=== PATIENT | male | born 1965 | race Caucasian/White ===

== ENCOUNTER → 2018-01-07 07:11 | Outpatient (CLI) | payer OTHER, SELFPAY ==
--- NOTE | 2018-01-07 13:43 | NEURO ---
NCS and/or EMG Patient Report Ordering Doctor: Sonali Lechuga DATE OF SERVICE: 01/07/18 This is a bilateral upper extremity nerve conduction study performed on this 52-year-old male with a history of initially burning sensation in his hands in all of his fingers, progressing to loss of sensation in the fingertips. He has previously been diagnosed with peripheral neuropathy in his feet at this point described as numbness at midcalf. He has seen a neurologist apparently at the [facility] in [place] and was diagnosed with an idiopathic neuropathy. He is healthy otherwise. Previous nerve conduction study performed 08/16/09 demonstrated similar findings as today's study. Today's study demonstrates mild prolongation of the median motor distal latencies with preservation of the median sensory distal latencies. On the left side amplitudes are reduced on the right side there preserved. Conduction velocities are intact. Ulnar motor and sensory and radial sensory responses are normal. These findings are consistent with nerve conduction study results from 08/16/2009. Impression: There is evidence of mild to moderate median neuropathy at the wrists bilaterally however this does not appear to explain his clinical symptoms which are more consistent with a small fiber neuropathy based on normal electrophysiologic studies otherwise. The patient reports a history of B12 replacement. Other investigations could include evaluation of serum protein electrophoresis, hepatic panel, heavy metal screen if there is a history of heavy metal exposure, and inflammatory markers.
--- NOTE | 2018-01-07 13:46 | NEURO_ITS ---
NCS and/or EMG Patient Report Ordering Doctor: Sonali Lechuga DATE OF SERVICE: 01/07/18 This is a bilateral upper extremity nerve conduction study performed on this 52- year-old male with a history of initially burning sensation in his hands in all of his fingers, progressing to loss of sensation in the fingertips. He has previously been diagnosed with peripheral neuropathy in his feet at this point described as numbness at midcalf. He has seen a neurologist apparently at the [facility] in [place] and was diagnosed with an idiopathic neuropathy. He is healthy otherwise. Previous nerve conduction study performed 08/16/09 demonstrated similar findings as today's study. Today's study demonstrates mild prolongation of the median motor distal latencies with preservation of the median sensory distal latencies. On the left side amplitudes are reduced on the right side there preserved. Conduction velocities are intact. Ulnar motor and sensory and radial sensory responses are normal. These findings are consistent with nerve conduction study results from 08/16/2009. Impression: There is evidence of mild to moderate median neuropathy at the wrists bilaterally however this does not appear to explain his clinical symptoms which are more consistent with a small fiber neuropathy based on normal electrophysiologic studies otherwise. The patient reports a history of B12 replacement. Other investigations could include evaluation of serum protein electrophoresis, hepatic panel, heavy metal screen if there is a history of heavy metal exposure, and inflammatory markers.
== END ==
PROVIDERS: Family Provider Internal Medicine; PCP Internal Medicine; Visit Provider Internal Medicine
DX: R20.2 Paresthesia of skin (principal)
CPT/HCPCS: 95913

== ENCOUNTER → 2018-11-06 13:14 | Outpatient (CLI) | payer OTHER, SELFPAY ==
--- NOTE | 2018-11-06 13:20 | RAD_ITS ---
STUDY: X-RAY CHEST REASON FOR EXAM: Male, 53 years old. Mid chest pain. TECHNIQUE: PA and lateral views of the chest. COMPARISON: Comparison is made with prior study dated April 21, 2015. FINDINGS: The lungs are clear and expanded. Scattered calcified granulomas. The lungs are clear. There is no demonstrated pleural abnormality. Normal size heart. Normal mediastinum and kaylee. Normal visualized pulmonary arteries. Normal visualized aortic arch and descending thoracic aorta. There are mild degenerative changes of the visualized thoracic spine. Normal visualized ribs, clavicles, and shoulders. There is no demonstrated abnormality of the visualized soft tissue structures of the upper abdomen. RAD/Chest PA and Lateral IMPRESSION: No acute abnormality is seen. Electronically Signed: Huan Arias, at 13:36 EDT , Service support ,
== END ==
PROVIDERS: Family Provider Internal Medicine; PCP Internal Medicine; Visit Provider Internal Medicine
DX: R07.9 Chest pain, unspecified (principal)
CPT/HCPCS: 71046

== ENCOUNTER → 2018-11-06 14:05 | Outpatient (CLI) | payer OTHER, SELFPAY ==
[2018-11-06 14:25] LABS: Hemoglobin 15.9 g/dl (13.0-16.5); Mean Corp Hgb Conc 33.8 g/gl (32-36); Mean Corpuscular Hgb 27.5 pg (27.0-32.0); Mean Corpuscular Volume 81.3 fL (80-94); Mean Platelet Vol. 10.4 fl (6.2-12.0); Platelet Count 335 K/mm3 (150-450); RBC Distribution Width SD 41.9 fl (35.1-43.9); Red Blood Count 5.78 M/mm3 (4.6-6.2); White Blood Count 9.4 K/mm3 (4.4-11.0)
[2018-11-06 14:27] LABS: Erythrocyte Sedimentation Rate 7 mm/hr (0-20)
[2018-11-06 14:28] LABS: Scan Indicated on CBC? Y/N NO
[2018-11-06 14:46] LABS: D-Dimer Quantitative (DVT/PE) < 0.27 FEU/ug/m (0.27-0.49)
[2018-11-06 14:58] LABS: ALB/GLOB Ratio 1.1 RATIO (0.9-2.4); AST(SGOT) 16 U/L (15-37); Alanine Aminotransfer ALT/SGPT 26 U/L (16-61); Albumin, Serum 3.9 g/dL (3.2-5.0); Alkaline Phosphatase 101 U/L (45-117); Anion Gap 4 (5-15); BUN 17 mg/dL (7-18); BUN/Creat Ratio 18.5 RATIO (10-20); Calcium,Total 8.9 mg/dL (8.5-10.1); Chloride 105 mmol/L (98-107); Creatinine, Serum 0.92 mg/dL (0.70-1.30); EST Glomerular Filtration Rate 91 mL/min (>60); Est Glom Filt Rate - Afr Amer 110 mL/min (>60); Globulin 3.5 g/dL (2.2-4.2); Glucose 82 mg/dL (74-106); Potassium 5.1 mmol/L (3.5-5.1); Protein, Total 7.4 g/dL (6.4-8.2); Sodium Level 139 mmol/L (136-145)
== END ==
PROVIDERS: Family Provider Internal Medicine; PCP Internal Medicine; Referring Provider Internal Medicine; Visit Provider Internal Medicine
DX: R07.9 Chest pain, unspecified (principal)
CPT/HCPCS: 80053; 84484; 85027; 85379; 85652

== ENCOUNTER → 2018-11-20 05:47 | Outpatient (CLI) | payer OTHER, SELFPAY ==
[2018-11-07 09:20] VITALS: BMI 34.8
--- NOTE | 2018-11-20 10:06 | STRESSREP ---
Stress Test Report Date: 11-20-18 Procedure: Exercise tolerance test/imaging study Indications: Chest pain Consent: Per the patient Procedure: The patient exercised on a Alexy protocol for 8 minutes and 30 seconds completing Stage II and 2 minutes and 30 seconds of Stage III achieving a peak heart rate of 164 bpm (99 % predicted maximal heart rate) with a peak blood pressure 150/84 mmHg and a peak MET capacity of 9 METs. The baseline ECG demonstrated normal sinus rhythm. The peak exercise ECG demonstrated somatic/motion artifact with no obvious ECG changes. There was a rare PVC during exercise and recovery. The functional capacity was considered good. There was no complaint of chest discomfort during exercise or recovery. The examination was discontinued secondary to dyspnea. Impression: 1. Technically adequate (percent predicted maximal heart rate greater than 85%) exercise tolerance test 2. Peak exercise ECG demonstrated somatic/motion artifact with no obvious ECG changes 3. There was a rare PVC during exercise and recovery 4. Nuclear images pending Myocardial perfusion imaging study: Technique: The patient was injected with 14.7 mCi of technetium 99m Cardiolite and subsequently rest SPECT Cardiolite nuclear imaging was obtained in the horizontal long, vertical long, and short axis views. The patient exercised on a Alexy protocol for 8 minutes and 30 seconds completing Stage II and 2 minutes and 30 seconds of Stage III achieving a peak heart rate of 164 bpm (99 % predicted maximal heart rate) with a peak blood pressure 150/84 mmHg and a peak MET capacity of 9 METs. The patient was injected with 44.6 mCi of technetium 99m Cardiolite and subsequently stress SPECT Cardiolite nuclear imaging was obtained in the horizontal long, vertical long, and short axis views. A gated Cardiolite study at peak stress was obtained. Interpretation: Rest and stress SPECT Cardiolite nuclear imaging status post realignment, normalization, and attenuation correction, demonstrates the raw images to suggest an element of body motion during image acquisition. At rest there appears to be relative uniform tracer uptake. Status post stress there is notation of an area of subtle diminished tracer uptake in the mid anterior segments. There is end systolic thickening and brightening. The gated Cardiolite study demonstrates myocardial thickening and inward wall motion. The reported LVEF is 65 %. Impression: 1. Rest and stress SPECT Cardiolite nuclear imaging demonstrate demonstrate, based upon raw image analysis, body motion during image acquisition. Otherwise there appears to be relative uniform tracer uptake at rest. Status post stress there is an area of subtle diminished tracer uptake in the mid anterior segments potentially compatible with body motion/artifact and shifting soft tissue attenuation, however, an element of myocardial ischemia cannot necessarily be excluded. 2. The gated Cardiolite study reports an LVEF of 65 %. This note was generated with [employer] software. It may contain incorrect words, spelling, and punctuation that were not noted in checking the note before signing.
== END ==
PROVIDERS: Family Provider Internal Medicine; PCP Internal Medicine; Referring Provider Internal Medicine; Visit Provider Internal Medicine
DX: R07.9 Chest pain, unspecified (principal)
CPT/HCPCS: 78452; 93017; A9500; A4216

== ENCOUNTER 2019-05-03 02:19 | Emergency (ER) | payer OTHER, SELFPAY ==
[2018-11-07 09:20] VITALS: BMI 34.8
[2019-05-03 02:20] VITALS: BP 136/93; PULSE 95; RESP 17; TEMP 36.8; O2SAT 94; BMI 35.2
--- NOTE | 2019-05-03 02:30 | RAD_ITS ---
STUDY: X-RAY CHEST REASON FOR EXAM: Male, 53 years old. Chest pain. TECHNIQUE: Single AP portable view of the chest. COMPARISON: 11/06/2018. FINDINGS: The lungs are clear and expanded. There is no demonstrated pleural abnormality. Normal size heart. Normal mediastinum and kaylee. Normal visualized pulmonary arteries. Normal visualized aortic arch and descending thoracic aorta. Normal visualized thoracic spine. Normal visualized ribs, clavicles, and shoulders. There is no demonstrated abnormality of the visualized soft tissue structures of the upper abdomen. RAD/Chest 1 View (Portable) IMPRESSION: Normal x-ray examination of the chest. Electronically Signed: Evelyn Mas MD at 3:27 EST , Service support ,
--- NOTE | 2019-05-03 02:30 | ED.DCSUM_ITS ---
- ER Visit Summary Date of Service: 05/03/19 Chief Complaint: Chest pain History of Present Illness: The patient is a 53 M with chest pain. It started in a bandlike pattern over his lower ribs at around 3 PM yesterday. The pain radiates up into his retrosternal area. It feels like a tightness and heavine ss, similar to prior bronchitis. He denies cough or other bronchitis symptoms. Denies recent illness. He was watching TV when it started. He does not notice an exertional component. Does not notice any other associated symptoms like nausea, shortness of breath, or diaphoresis. He did feel little lightheaded. Nothing seems to bring it on or make it worse. Nothing seems to make it better. He never had this in the past. He was evaluated in November of this year with a stress test. They could not completely rule out ischemia, but there was nothing obviously abnormal. He does not take aspirin or other blood thinners. Denies any history of coronary disease or other heart disease. Denies any history of venous thromboembolism or aortic disease. Physical Examination: Afebrile and vital signs unremarkable. Alert and oriented. No acute distress. Skin appears normal without diaphoresis or pallor. Heart regular rate and rhythm. Lungs clear. Extremities nontender. Pulses strong and equal. Test Results: EKG showed sinus rhythm at a rate of 89 with no signs of ischemia or infarction pattern. Laboratory studies and chest x-ray are pending. Emergency Department Course and Treatment: IV placed. Patient placed on a monitor. EKG unremarkable. Will check labs and chest x-ray. He received aspi rin while awaiting results. Patient's work-up was completely unremarkable. His symptoms had decreased a lot as he waited here. I have very low suspicion for ACS. His pain has been constant for almost 12 hours, and his troponin was normal. This does not sound like unstable angina. I was talking with the patient and noticed his pulse ox was 92% on room air. I continued to observe him and he does not appear to be short of breath or in any distress. However, his pulse ox remained 92 to 93%. I do not have an explanation for this. We will check a CTA. CTA showed no evidence of PE or dissection. Patient is low risk and will follow-up as an outpatient for further evaluation. Return for any new or worsening issues. Patient did report that his verapamil ER prescription has not shown up at his house yet and is requesting a refill. Will refill short supply. He should follow-up with his prescriber and mail order company. Treatment Plan: As above Disposition: Discharge Impression: 1. Atypical chest pain This note was generated with [employer] dictation software. It may contain incorrect words, spelling, and punctuation that were not noted in review of the chart prior to signing ED Disposition - Plan for ED Patient: Referrals: Sonali Lechuga MD [Primary Care Provider] -
--- NOTE | 2019-05-03 02:30 | EKG12_ITS ---
Test Reason : CP Blood Pressure : / mmHG Vent. Rate : 089 BPM Atrial Rate : 089 BPM P-R Int : 172 ms QRS Dur : 076 ms QT Int : 332 ms P-R-T Axes : 018 015 027 degrees QTc Int : 403 ms Normal sinus rhythm Normal ECG Confirmed by CATY RIVERA MD ([id number]), web editor MERLINE PACHECO ([id number]) on 05/05/2019 11:36:36 AM Referred By: DC Confirmed By:CATY RIVERA MD
[2019-05-03] MEDS: Aspirin 81 MG TAB.CHEW 324 MG PO (02:35)
[2019-05-03 02:40] LABS: Absolute Lymphocyte Count 2.65 X10^3/uL (0.83-4.51); Basophil# 0.06 X10^3/uL; Basophil% 0.6 % (0-1); Eosinophil# 0.19 X10^3/uL; Eosinophils% 1.9 % (0-5); Hematocrit 48.6 % (40-54); Hemoglobin 15.7 g/dL (13.0-16.5); Lymphocyte # 2.65 X10^3/ul (4.0); Mean Corp Hgb Conc 32.3 g/dL (32-36); Mean Corpuscular Hgb 27.3 pg (27.0-32.0); Mean Corpuscular Volume 84.5 fL (80-94); Monocyte# 1.31 X10^3/uL; Monocyte% 12.8 % (0-10); NRBC Flagged by Analyzer 0 % (0-5); Neutrophil # 5.95 X10^3/uL (2.7-7.7); Neutrophil % 58.2 % (47-70); Platelet Count 285 K/mm3 (150-450); RBC Distribution Width CV 13.4 % (11.6-14.6); RBC Distribution Width SD 41.2 fl (35.1-43.9); Red Blood Count 5.75 M/mm3 (4.6-6.2); White Blood Count 10.2 K/mm3 (4.4-11.0)
[2019-05-03 02:55] LABS: AST(SGOT) 14 U/L (15-37); Alanine Aminotransfer ALT/SGPT 30 U/L (16-61); Albumin, Serum 3.6 g/dL (3.2-5.0); Alkaline Phosphatase 106 U/L (45-117); Anion Gap 5 (5-15); BUN 18 mg/dL (7-18); BUN/Creat Ratio 18.1 RATIO (10-20); Bilirubin, Direct 0.12 mg/dL (0.00-0.30); Calcium,Total 8.8 mg/dL (8.5-10.1); Chloride 107 mmol/L (98-107); Creatinine, Serum 0.99 mg/dL (0.70-1.30); EST Glomerular Filtration Rate 83 mL/min (>60); Est Glom Filt Rate - Afr Amer 100 mL/min (>60); Estimated Creatinine Clearance 103.51 ml/min; Globulin 3.8 g/dL (2.2-4.2); Glucose 105 mg/dL (74-106); Lipase 264 U/L (73-393); Potassium 3.9 mmol/L (3.5-5.1); Protein, Total 7.4 g/dL (6.4-8.2); Sodium Level 140 mmol/L (136-145)
--- NOTE | 2019-05-03 03:43 | CT_ITS ---
STUDY: CTA CHEST REASON FOR EXAM: Male, 53 years old. Chest pain. History of hypertension. RADIATION DOSAGE (If Supplied By Facility): CTDIvol = ( 11.61 ) mGy, DLP = ( 550.14 ) mGycm TECHNIQUE: The examination was performed with the intravenous administration of IV 100mL Isovue-370 100ML. Post-processing of the angiographic images was performed, with multiplanar reformation and 3D reconstruction. Individualized dose optimization techniques were used for this CT. COMPARISON: None. FINDINGS: Normal enhancement of the main pulmonary artery and right and left pulmonary arteries. Normal enhancement of the bilateral peripheral pulmonary arteries. There is no demonstrated pulmonary embolism. Normal thoracic aorta and visualized great vessels. There is no demonstrated aortic dissection. Normal heart and pericardium. Normal mediastinum. Normal hilar regions. Normal visualized trachea and bronchi. The lungs are well expanded. There is mild bilateral posterior dependent atelectasis, otherwise normal lung parenchyma. Normal pleura. Normal chest wall structures. There are mild degenerative changes of thoracic spine. Normal visualized upper abdomen. CT/CTA Chest W/WO Contrast IMPRESSION: Negative CTA chest examination, without a demonstrated pulmonary embolism or arterial dissection. Mild posterior dependent atelectasis, otherwise normal chest CT examination. Electronically Signed: Evelyn Mas MD at 4:28 EST , Service support ,
[2019-05-03 03:48] VITALS: BP 121/87; PULSE 84; RESP 20; O2SAT 95
--- NOTE | 2019-05-03 04:39 | ED.DEP ---
ED Disposition - Plan for ED Patient: Instructions: CHEST PAIN, Uncertain Cause Prescriptions: Verapamil HCl [Verapamil ER] 480 mg PO QHS 30 Days #60 tablet.er Prescription Printed Referrals: Sonali Lechuga MD [Primary Care Provider] -
[2019-05-03 04:51] VITALS: BP 123/83; PULSE 82; RESP 18; O2SAT 93
== END 2019-05-03 05:00 | disposition home or self-care (01) ==
PROVIDERS: Emergency Provider Emergency Medicine; Family Provider Internal Medicine; PCP Internal Medicine
DX: R07.89 Other chest pain (principal); I10 Essential (primary) hypertension; R42 Dizziness and giddiness; G47.33 Obstructive sleep apnea (adult) (pediatric); Z79.899 Other long term (current) drug therapy
CPT/HCPCS: 71045; 71275; 80048; 80076; 83690; 84484; 85025; 93005; 99285; Q9967; A4216

== ENCOUNTER → 2019-05-12 08:34 | Outpatient (CLI) | payer OTHER, SELFPAY ==
[2019-05-03 02:20] VITALS: BMI 35.2
--- NOTE | 2019-05-12 08:37 | RAD_ITS ---
STUDY: X-RAY - UNILATERAL RIBS ( LEFT ) WITH CHEST REASON FOR EXAM: Male, 53 years old. TECHNIQUE - RIBS: 5 view(s) of the ribs. TECHNIQUE - CHEST: COMPARISON: None. FINDINGS - RIBS: Normal visualized ribs without a demonstrated fracture. FINDINGS - CHEST: The lungs are clear and expanded. There is no demonstrated pleural abnormality. Normal size heart. Normal mediastinum and kaylee. Normal visualized pulmonary arteries. Normal visualized aortic arch and descending thoracic aorta. Normal visualized thoracic spine. Normal visualized ribs, clavicles, and shoulders. There is no demonstrated abnormality of the visualized soft tissue structures of the upper abdomen. RAD/Ribs Uni Min 3V w/PA Chest IMPRESSION: RIBS: Normal x-ray examination of the ribs. CHEST: Normal x-ray examination of the chest. Electronically Signed: Lucas Giordano, at 16:16 EST Tel , Service support ,
== END ==
PROVIDERS: Family Provider Internal Medicine; PCP Internal Medicine; Referring Provider Internal Medicine; Visit Provider Internal Medicine
DX: R07.81 Pleurodynia (principal)
CPT/HCPCS: 71101

== ENCOUNTER 2020-11-11 01:46 | Emergency (ER) | payer OTHER, SELFPAY ==
[2020-11-11 01:49] VITALS: BP 134/89; PULSE 76; RESP 20; TEMP 36.6; O2SAT 98; BMI 35.9
--- NOTE | 2020-11-11 01:55 | CT_ITS ---
STUDY: CT ABDOMEN AND PELVIS WITHOUT CONTRAST REASON FOR EXAM: Male, 55 years old. Pain RADIATION DOSAGE (If Supplied By Facility): CTDIvol = ( 23.78 ) mGy, DLP = ( 1419.74 ) mGycm TECHNIQUE: Transaxial images were obtained from the dome of the diaphragm to the symphysis pubis without oral contrast, and without intravenous contrast. Sagittal and coronal images were reconstructed. Individualized dose optimization techniques were used for this CT. COMPARISON: None. FINDINGS: The visualized lung bases are unremarkable. The visualized portions of the heart are within normal limits. Normal liver. Normal gallbladder and extrahepatic biliary system. Normal spleen. Normal pancreas. Normal bilateral adrenal glands. There is a 2 mm calculus within the distal right ureter with mild upstream hydroureter.. Tiny 2 mm nonobstructive left renal calculus. Normal visualized stomach. Normal small intestine. There are multiple colonic diverticula consistent with diverticulosis. The appendix is visualized and appears normal. Normal abdominal aorta. Normal inferior vena cava. Normal retroperitoneum. Normal urinary bladder. Normal abdominal wall. Normal osseous structures. CT/Abdomen/Pelvis without Cont IMPRESSION: 2 mm calculus at the right ureterovesicular junction with mild upstream right hydroureter. Electronically Signed: Rene Frank MD at 2:59 EDT Tel , Service support ,
[2020-11-11] MEDS: 0.9% Normal Saline 1,000 ML 1000 ML IV (02:05)
[2020-11-11] MEDS: Ondansetron 4 MG/2 ML Vial IV (02:05)
[2020-11-11] MEDS: Ketorolac 15 MG/ML Vial IV (02:06)
[2020-11-11] MEDS: morphine 8 MG/ML Syringe IV (02:08)
[2020-11-11 02:12] LABS: Absolute Lymphocyte Count 2.61 X10^3/uL (0.83-4.51); Absolute Neutrophil Count 7.1 X10^3/uL (2.0-7.7); Basophil# 0.06 X10^3/uL; Basophil% 0.6 % (0-1); Eosinophil# 0.14 X10^3/uL; Eosinophils% 1.3 % (0-5); Hematocrit 47.2 % (40-54); Hemoglobin 15.2 g/dL (13.0-16.5); Lymphocyte # 2.61 X10^3/ul (0.83-4.51); Lymphocyte % 23.9 % (19-41); Mean Corp Hgb Conc 32.2 g/dL (32-36); Mean Corpuscular Hgb 27.4 pg (27.0-32.0); Mean Corpuscular Volume 85.2 fL (80-94); Mean Platelet Vol. 9.6 fl (6.2-12.0); Monocyte# 0.89 X10^3/uL; Monocyte% 8.2 % (0-10); NRBC Flagged by Analyzer 0 % (0-5); Neutrophil # 7.14 X10^3/uL (2.7-7.7); Neutrophil % 65.4 % (47-70); Platelet Count 311 K/mm3 (150-450); RBC Distribution Width CV 14.4 % (11.6-14.6); RBC Distribution Width SD 44.7 fl (35.1-43.9); Red Blood Count 5.54 M/mm3 (4.6-6.2); White Blood Count 10.9 K/mm3 (4.4-11.0)
[2020-11-11 02:29] LABS: ALB/GLOB Ratio 0.9 RATIO (0.9-2.4); AST(SGOT) 16 U/L (15-37); Alanine Aminotransfer ALT/SGPT 31 U/L (16-61); Albumin, Serum 3.6 g/dL (3.2-5.0); Alkaline Phosphatase 94 U/L (45-117); Anion Gap 5 (5-15); BUN 18 mg/dL (7-18); BUN/Creat Ratio 13.4 RATIO (10-20); Calcium,Total 8.9 mg/dL (8.5-10.1); Chloride 104 mmol/L (98-107); Creatinine, Serum 1.34 mg/dL (0.70-1.30); EST Glomerular Filtration Rate 58 mL/min (>60); Est Glom Filt Rate - Afr Amer 71 mL/min (>60); Estimated Creatinine Clearance 74.67 ml/min; Globulin 4.1 g/dL (2.2-4.2); Glucose 154 mg/dL (74-106); Lipase 178 U/L (73-393); Potassium 3.9 mmol/L (3.5-5.1); Protein, Total 7.7 g/dL (6.4-8.2); Sodium Level 138 mmol/L (136-145)
[2020-11-11 02:32] LABS: Mucous, Urine 0 SEEN /hpf (<or=2+); White Blood Cells 0 SEEN /hpf (0-5)
[2020-11-11 02:33] LABS: Color, Urine Yellow (Yellow); Glucose, Dipstick Normal (Normal); Ketone-Dipstick Negative (Negative); Leukocyte Esterase-Dipstick Negative /ul (Negative); Nitrite-Dipstick Negative (Negative); Occult Blood-Urine 250 /ul (Negative); Protein-Dipstick 15 mg/dl (Negative); Urine Bilirubin Dipstick Negative (Negative); Urine Clarity Clear (Clear); Urine Urobilinogen Normal (Normal)
[2020-11-11 02:40] LABS: Bacteria RARE /hpf (None Seen); Calcium Oxalate Crystals Ur 1+ /hpf (<or=2+); Hyaline Cast 0-5 SEEN /lpf (0-5); Red Blood Cells-Urine 25-50 SEEN /hpf (0-5); Squamous Epithelial Cells - UA 0-5 SEEN /hpf (0-5)
--- NOTE | 2020-11-11 03:27 | EDS_ITS ---
HPI History of Present Illness Chief Complaint: Flank Pain Informant: patient Narrative Narrative: Patient is a 55-year-old male presenting with back and abdominal pain. Patient states he woke up with pain in his right lower back rating around to his stomach. States it is constant and sharp. He states he feels the need to urinate but has not. Patient states he has some pain rating to his right testicle as well. He has some associated nausea denies any vomiting. No change in his bowel habits. No associated chest pain or shortness of breath. States he felt fine when he went to bed last night. Has never had any like this before. Denies any history of kidney stones. [facility] Medical History (Updated 11/11/20 @ 03:[address] Jessica Stone DO) Cluster headaches Degeneration of intervertebral disc of lumbosacral region First degree AV block Hemorrhoids Hypercholesterolemia Hypertension Male erectile dysfunction Obesity Onychomycosis Peripheral neuropathy Sleep apnea Spasm of back muscles Vitamin D deficiency Home Medications gabapentin 600 mg tablet 600 mg PO TID 11/07/18 [History Last Taken Unknown] pravastatin 80 mg tablet 80 mg PO DAILY 11/07/18 [History Last Taken Unknown] verapamil 240 mg 24 hr capsule,extended release 240 mg PO DAILY 11/07/18 [History Last Taken Unknown] Cialis PRN PRN 05/03/19 [History Last Taken Unknown] Imitrex PRN PRN 05/03/19 [History Last Taken Unknown] Terbinafine PRN PRN 05/03/19 [History Last Taken Unknown] liraglutide 0.6 mg SQ DAILY 05/03/19 [History Last Taken Unknown] hydrocodone-acetaminophen 1 tab PO Q6H PRN 3 Days #12 tab 11/11/20 [Rx Last Taken Unknown] ondansetron HCl [Zofran] 4 mg PO Q8H PRN #14 tab 11/11/20 [Rx Last Taken Unknown] tamsulosin [Flomax] 0.4 mg PO DAILY #7 cap 11/11/20 [Rx Last Taken Unknown] Allergy/AdvReac Type Severity Reaction Status Date / Time divalproex sodium Allergy Intermediate leg Verified 11/11/20 01:47 [From Depakote] swelling/fatique Family History Grandmother Cancer uterine/ovarian Mother Diabetes Hypercholesterolemia Grandfather Heart disease Father Cancer multiple myeloma Surgical History excision fatty cysts on back and arms H/O basal cell carcinoma excision History of arthroscopy of shoulder History of back surgery History of bilateral inguinal hernia repair History of vasectomy history repair left index finger Social History Smoking Status: Never smoker alcohol intake: current alcohol intake frequency: a few times a month substance use type: does not use ROS ROS ED Constitutional Constitutional ED: Denies chills, fever(s) or malaise Eyes Eyes: Denies blurry vision or loss of vision ENT ENT ED: Denies rhinorrhea or sore throat Cardiovascular Cardiovascular: Denies chest pain or dizziness Respiratory/Chest Respiratory/Chest: Denies cough or dyspnea Gastrointestinal Gastrointestinal: Reports abdominal pain and nausea; Denies vomiting Genitourinary Genitourinary ED: Reports other Details: urgency ; Denies dysuria or hematuria Musculoskeletal Musculoskeletal: Reports back pain; Denies arthralgias or myalgias Integumentary Denies rash or wounds Neurologic Neurologic: Denies focal weakness or headache(s) Psychiatric Psychiatric: Denies anxiety or behavioral changes EXAM Physical Exam Const Vital Signs: 11/11/20 01:49 Temperature 97.9 F Temperature Source Oral Pulse Rate 76 Respiratory Rate 20 H Blood Pressure 134/89 H Blood Pressure Mean 104 Pulse Ox 98 Oxygen Delivery Method Room Air Positive well nourished and well developed Constitutional Narrative: distress secondary to pain General Appearance ED: well developed HEENT Reports normocephalic atraumatic Nose: no nasal discharge General Ear: hearing grossly impaired External Ear: external ears normal Eyes PERRL and EOMs intact bilaterally Neck full ROM and no meningeal signs Chest Wall inspection of chest normal Resp normal respiratory effort and normal air movement Cardio regular rate and regular rhythm GI normal to inspection, nondistended, normoactive bowel sounds and no masses Back/Spine General Back: CVA tenderness right Extremity normal to inspection and full ROM Neuro oriented x3 and no focal motor deficits Psych mental status grossly normal and thought process normal Skin no rashes or lesions noted and no wounds MDM MDM MDM Narrative Medical decision making narrative: Patient evaluated sudden onset of flank pain rating to his abdomen. He has associated nausea. He appears significantly uncomfortable upon arrival. History and presentation is consistent with a kidney stone. Urinalysis shows hematuria with a calcium oxalate crystal but no signs of infection. His kidney function is at his baseline with his creatinine of 1.34. Patient does not have a leukocytosis. He is given IV fluids, Toradol, morphine and Zofran with improvement of his symptoms. CT of the abdomen pelvis shows a 2 cm right stone at the UVJ. This is likely the cause of his symptoms. Patient be discharged home with referral to urology as well as symptomatic treatment including Garrison, Zofran and Flomax. He is given a urine strainer. He is counseled on return precautions. He verbalized agreement understand with his plan. Patient is given a dose of Garrison prior to discharge. Lab Data Attestation: I reviewed the patient's lab results. Labs: Laboratory Results - last 24 hr 11/11/20 11/11/20 11/11/20 02:03 02:03 02:27 WBC 10.9 RBC 5.54 Hgb 15.2 Hct 47.2 MCV 85.2 MCH 27.4 MCHC 32.2 RDW Std Deviation 44.7 H RDW Coeff of Lisa 14.4 Plt Count 311 MPV 9.6 Immature Gran % (Auto) 0.600 Neut % (Auto) 65.4 Lymph % (Auto) 23.9 [place] % (Auto) 8.2 Eos % (Auto) 1.3 Baso % (Auto) 0.6 Absolute Neuts (auto) 7.1 Absolute Lymphs (auto) 2.61 Nucleated RBC % 0 Sodium 138 Potassium 3.9 Chloride 104 Carbon Dioxide 29.0 Anion Gap 5 BUN 18 Creatinine 1.34 H Estim Creat Clear Calc 74.67 Est GFR (MDRD) Af Amer 71 Est GFR (MDRD) Non-Af 58 L BUN/Creatinine Ratio 13.4 Glucose 154 H Calcium 8.9 Total Bilirubin 0.30 AST 16 ALT 31 Alkaline Phosphatase 94 Total Protein 7.7 Albumin 3.6 Globulin 4.1 Albumin/Globulin Ratio 0.9 Lipase 178 Urine Color Yellow Urine Clarity Clear Urine pH 5.0 Ur Specific [place] 1.030 Urine Protein 15 H Urine Glucose (UA) Normal Urine Ketones Negative Urine Occult Blood 250 H Urine Nitrite Negative Urine Bilirubin Negative Urine Urobilinogen Normal Ur Leukocyte Esterase Negative Urine RBC 25-50 SEEN Urine WBC 0 SEEN Ur Squamous Epith Cells 0-5 SEEN Calcium Oxalate Crystal 1+ Urine Bacteria RARE Hyaline Casts 0-5 SEEN Urine Mucus 0 SEEN Radiography Diagnostic Testing: Radiology Impression Abdomen/Pelvis CT 11/11/20 01:55 IMPRESSION: 2 mm calculus at the right ureterovesicular junction with mild upstream right hydroureter. Electronically Signed: Rene Frank MD at 2:59 EDT Tel , Service support , Treatment and Re-Evaluation Comments:: Morphine, IV fluids, Toradol and Zofran, significant improvement of pain. Discharge Plan Triage Chief Complaint: Flank Pain ED Provider: Jessica Stone Dx/Rx/DC Orders Instructions: ED Kidney Stone w/ Colic Prescriptions: New tamsulosin [Flomax] 0.4 mg capsule 0.4 mg PO DAILY Qty: 7 RF: 0 ondansetron HCl [Zofran] 4 mg tablet 4 mg PO Q8H PRN (Reason: nausea and vomiting) Qty: 14 RF: 0 hydrocodone-acetaminophen 5-325 mg tablet 1 tab PO Q6H PRN (Reason: pain) 3 Days Qty: 12 RF: 0 No Action verapamil 240 mg capsule,ext rel. pellets 24 hr 240 mg PO DAILY RF: 0 pravastatin 80 mg tablet 80 mg PO DAILY RF: 0 gabapentin 600 mg tablet 600 mg PO TID RF: 0 liraglutide 0.6 MG/0.1 ML pen injector 0.6 mg SQ DAILY RF: 0 Cialis PRN PRN (Reason: ed) RF: 0 Imitrex PRN PRN (Reason: Headache) RF: 0 Terbinafine PRN PRN (Reason: SKIN) RF: 0 Primary Care Provider: Sonali Lechuga Referrals: Sonali Lechuga MD [Primary Care Provider] - Delmar Galindo MD [STAFF PHYSICIAN] - Activity Restrictions/Additional Instructions: You may also take ibuprofen over the counter for pain as needed. Disposition Disposition: Home, self care
[2020-11-11] MEDS: HYDROcodone Bitartrate/Apap 5/325 Tablet PO (03:44)
[2020-11-11 03:58] VITALS: BP 124/75; PULSE 90; RESP 18; O2SAT 96
== END 2020-11-11 03:59 | disposition home or self-care (01) ==
PROVIDERS: Emergency Provider Emergency Medicine; PCP Internal Medicine
DX: N20.0 Calculus of kidney (principal); E66.9 Obesity, unspecified; E78.00 Pure hypercholesterolemia, unspecified; Z79.899 Other long term (current) drug therapy
CPT/HCPCS: 74176; 80053; 81001; 83690; 85025; 96361; 96374; 96375; 99284; J7030; A4216; J2405

== ENCOUNTER 2021-01-13 14:30 | Outpatient (RCR) | payer OTHER, SELFPAY ==
[2020-12-02 11:38] VITALS: BMI 35.9
--- NOTE | 2020-12-16 10:06 | HP.PTEVAL_ITS ---
Patient's Visit Information NATALIA MARTINEZ is a 55 year old M referred to Physical Therapy by Dr. Dimitry Aceves DO with a diagnosis of R distal fibular avulsion fracture, ankle laxity. Date of Evaluation: 12/16/20 Physical Therapist: Aniceto Alvarado DPT - Visit Plan Frequency: 1x/Week Duration: 4-6 Weeks Plan: Start with ankle strengthening and ROM in non painful ranges. Be careful due to lack of sensation in B feet. Add in hip strengthening progressing to balance activities to increase proprioception of his B ankles. - Subjective Pt. is here today for his initial evaluation with diagnosis of distal fibular avulsion fracture. Pt. reports having a long history of ankle injuries since being in the service. He was walking and twisted his ankle resulting in inv ankle sprain and resulting fibular avulsion fracture. DOI: ~ 3 weeks ago, but then hurt it again a few days ago when he was getting off the ground. Pt. arrives wearing his air cast without much issue. He is having some burning at the anterio/lateral aspect of his R ankle. He reports spraining his ankle frequently, both ankles (reports 2-3 times per month). Pt. did report that he is chronic numbness from mid calf down throughout his fee bilaterally from a back injury in the early . No surgical intervention, but has very minimal feeling in B distal LEs. He reports some pain with walking, but has had increased pain since his mild injury a few days ago. He reports no bruising, but has had some edema (minimal). Pt. does work at [employer]. He is hopeful get back to all recreational activities without limitations or increase in pain. - Pain R ankle Pain Intensity (Out of 10): 1 Pain Intensity Range: 0, 3 Comment: burning feeling with walking. - Objective POSTURE: Pt. has normal posture, slight lateral wt. shift to L side in stance. Pt. has slight B hip ER positioning in stance. PALPATION: pt. has some mild edema at R lateral ankle, bruising noted. Pt. has limited sensation at lateral ankle, actually both distal LEs. NEURO: Pt. has marked limited sensation of BLEs. He was not able to feel the strongest mono filament from mid weber an down of BLEs. Pt. has 2+ patellar DTR bilaterally, unable to elicit Achilles DTR bilaterally. ROM: R ankle: AROM: PF 8deg, PF 36deg, INV 10deg (mild increase NW), EVR 12deg NE. PROM: DF 13deg (mild increase NW), PF 44deg (NE), INV 16deg (increase NW), EVR 18deg NE. Pt. has normal knee ROM bilaterally, tightness in B HS. MMT: RLE: ankle 4/5 throughout, with mild increase in symptoms with ankle EVR. Knee 5/5 throughout; hip- flexion 4+/5,abd 4/5, ext 4/5. LLE: ankle 5/5 throughout; knee- ext 5/5, flexion 5/5; hip- flexion 4+/5, abd 4/5, ext 4/5. GAIT: Pt. has a rigid gait pattern, he has early heel off on R side during preswing. He has normal hip positioning throughout. Decreased tempo and step length bilaterally. STAIRS: Step to pattern with ascending/descending secondary to mild increase in anterolateral ankle pain on R side. - Goals Goal 1:: LTG: Pt. to be I with [facility] for ankle and hip strengthening. Goal Time Frame: 4-6 Weeks Goal 2:: STG: Pt. to have normal gait pattern without increase in symptoms. Goal Time Frame: 2-4 Weeks Goal 3:: STG: Pt. to have increased active DF to 15deg allowing for non painful gait cycle. 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 Goal Time Frame: 4-6 Weeks Goal 5:: LTG: Pt. to negotiate steps with reciprocal pattern with 1 HR without increase in symptoms. Goal Time Frame: 4-6 Weeks - Rehabilitation Potential Physical Therapy Diagnosis: Pt. has signs and symptoms consistent with R distal fibular avulsion fracture. Pt. has a chronic history of ankle inversion sprains bilaterally. He also has marked sensation loss in BLEs from mid calf down and does not feel the ground well with walking. This lack of sensation and subsequent proprioception makes him at increased risk for ankle sprains. The patient would benefit from PT to increase ankle strength and hip strength initially to increase stability with gait and dynamic movements. He would then benefit from PT to work on stability exercises and proprioception exercises to reduce risk for future ankle sprains. Rehabilitation Potential: Good - Anticipated Interventions Patient/Client Instruction: Educate patient on: Condition, Plan of Care, Risk Factors, Benefits of Fitness Program For the Purpose of:: To facilitate caregiver knowledge, To improve self management, To prevent re-injury, To improve ability to perform tasks related to life management, To improve tolerance to ADL's Therapeutic Exercise to Include: Strength training, Power training, Balance training, Coordination, Body mechanics, Postural training, Gait and locomotor training, Passive ROM, Active ROM For the Purpose of:: To decrease pain, To increase ROM, To improve nutrient delivery to tissue, To improve performance and independence with ADL's, To decrease level of supervision to perform tasks, To improve ability of physical actions for home/community/work/leisure, To improve gait and locomotor functions, To improve health of tissue, To decrease soft tissue restriction Thank you for the opportunity to evaluate your patient. For Medicare and Medicare HMO plans, please review the plan of care and approve it. It will need to be FAXED BACK to us at [phone] for Medicare purposes. For Medicare only, by signing this I certify the plan of care. Please let me know if there are questions or concerns regarding this plan of care. Physician Signature: Date:
--- NOTE | 2021-05-22 12:16 | HP.PT.NRP ---
NATALIA MARTINEZ was seen in my office for initial evaluation on 12/16/20. The following Plan of Care was established for this patient: Initial Frequency: 1x/Week Initial Duration: 4-6 Weeks Patient/Client Instruction: Educate patient on: Condition, Plan of Care, Risk Factors, Benefits of Fitness Program For the Purpose of:: To facilitate caregiver knowledge, To improve self management, To prevent re-injury, To improve ability to perform tasks related to life management, To improve tolerance to ADL's Therapeutic Exercise to Include: Strength training, Power training, Balance training, Coordination, Body mechanics, Postural training, Gait and locomotor training, Passive ROM, Active ROM For the Purpose of:: To decrease pain, To increase ROM, To improve nutrient delivery to tissue, To improve performance and independence with ADL's, To decrease level of supervision to perform tasks, To improve ability of physical actions for home/community/work/leisure, To improve gait and locomotor functions, To improve health of tissue, To decrease soft tissue restriction This patient was last seen in our office 01/13/21. Pertinent comments regarding their Physical therapy will appear below: Pt. was seen in PT for his distal fibular fx. Pt. was doing very well at his last visit. He has not ankita seen in several months and will be DC from PT at this point in time. At this point I will be discontinuing this patient from physical therapy. I would be happy to see this patient again in the future if found appropriate by the physician. Thank you! Aniceto Alvarado, DPT Balance/Gait/Functional tests - Balance/Special Test Scores Lower Extremity Functional Score: 55
== END 2021-01-13 19:00 | disposition home or self-care (01) ==
LOC: PT 14:30
PROVIDERS: PCP Internal Medicine; Referring Provider Orthopaedic Surgery; Visit Provider Orthopaedic Surgery
DX: S82.831D Other fracture of upper and lower end of right fibula, subsequent encounter for closed fracture with routine healing (principal); X58.XXXD Exposure to other specified factors, subsequent encounter
CPT/HCPCS: 97110; 97161

== ENCOUNTER → 2021-05-22 | Outpatient (CLI) | payer OTHER, SELFPAY | END | disposition home or self-care (01) | LOC: LABSPEC 10:05 | PROVIDERS: PCP Internal Medicine; Visit Provider Internal Medicine | DX: Z20.822 Contact with and (suspected) exposure to COVID-19 (principal) | CPT/HCPCS: 87635; U0005; U0003 ==

== ENCOUNTER 2021-10-25 08:00 | Outpatient (RCR) | payer OTHER, SELFPAY ==
--- NOTE | 2021-09-22 09:02 | HP.PTEVAL_ITS ---
Patient's Visit Information NATALIA MARTINEZ is a 56 year old M referred to Physical Therapy by Dr. Sonali Lechuga MD with a diagnosis of B shoulder pain. Date of Evaluation: 09/22/21 Physical Therapist: Robert Rucker, PT, ATC - Visit Plan Frequency: 1x/Week Duration: 2 Weeks Plan: Issue and instruct pt on HEP of rotator cuff strengthening and scap stab ex's over next 2 visits - Subjective Pt reports He has had B shoulder pain for a chronic period of time. Pt reports he had surgery on his L shoulder many years ago and never had rehab for it afterwards. Pt notes his R shoulder has been sore for the past 12 months. 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 Pt reports he is L hand dominant. Pt reports he received a cortisone injection in his R shoulder on his last Dr. visit and notes most of the pain is gone now. Pt reports he is mostly here now because he wants to make sure the pain doesnt return. No tingling or numbness in UE's. Pt reports he is still having sleep difficulty secondary to pain. Pt has had recent xrays which reveal no significant findings with the R shoulder. Pt currently works in a desk setting type of role. 1/10 pain at rest, 6/10 pain at worst. Pt reports anything that requires reaching overhead causes pain. - Pain B shoulders Pain Intensity (Out of 10): 1 Pain Intensity Range: 6 - Objective Neuro: B UE sensation is WNL to light touch. B bicipital reflex= 2/3. Palpation: No pain on L shoulder. Pt has pain on the lateral aspect of R shoulder. No obvious deformities at this time. ROM: L shoulder flex= 155, abd= 160, ER= 30, IR WNL; R shoulder flex= 155, abd= 140, ER= 40, IR WNL. MMT: B shoulders are 5/5 with he exception of ER= 4-/5 and painful - Balance/Special Test Scores Quick DASH Score: 29.5450 - Goals Goal 1:: I with HEP in 2-3 visits Goal Time Frame: 2 Weeks - Rehabilitation Potential Physical Therapy Diagnosis: Pt has B shoulder pain and weakness secondary to Impingement syndrome of B shoulders Rehabilitation Potential: Good - Anticipated Interventions Patient/Client Instruction: Educate patient on: Condition, Plan of Care For the Purpose of:: To improve self management Therapeutic Exercise to Include: Strength training, Endurance training, Scapular Strength/Stabilization For the Purpose of:: To decrease pain, To improve muscle performance and motor function Cryotherapy (ice pack, ice massage): Yes For the Purpose of:: To decrease pain Thank you for the opportunity to evaluate your patient. For Medicare and Medicare HMO plans, please review the plan of care and approve it. It will need to be FAXED BACK to us at [phone] for Medicare purposes. For Medicare only, by signing this I certify the plan of care. Please let me know if there are questions or concerns regarding this plan of care. Physician Signature: Date:
--- NOTE | 2021-10-25 08:50 | HP.PTDCSUM ---
It has been my pleasure to treat NATALIA MARTINEZ referred by Dr. Sonali Lechuga MD, with the diagnosis of B shoulder pain for a total of 3 visit(s). Discharge Date: Please see the following information for a summary of their discharge status. Subjective: Pt reports no pain at this time. B shoulders Pain Intensity (Out of 10): 0 % Improvement: 85 Objective/Function: B shoulder pain 0/10. ROM: R shoulder flex= 180, abd= 180, ER= 40, IR WNL; L shoulder flex= 180, abd= 180, ER= 40, IR WNL. MMT: B shoulders 5/5 throughout. Pt is now I with HEP Goal 1:: I with HEP in 2-3 visits Goal Progress: Goal Met Plan: Discharge If there are questions or concerns regarding this patient's physical therapy, please feel free to call me at [phone]. Thank you for the referral of this patient. Sincerely, Robert Rucker, PT, ATC Balance/Gait/Functional tests - Balance/Special Test Scores Quick DASH Score: 0
== END 2021-10-25 19:00 | disposition home or self-care (01) ==
LOC: PT 08:00
PROVIDERS: PCP Internal Medicine; Referring Provider Internal Medicine; Visit Provider Internal Medicine
DX: M25.511 Pain in right shoulder (principal); M25.512 Pain in left shoulder
CPT/HCPCS: 97110; 97161; 97164

== ENCOUNTER 2023-01-05 23:27 | Inpatient (IN) | payer OTHER, SELFPAY ==
[2023-01-05 23:31] VITALS: BP 163/129; PULSE 88; RESP 18; TEMP 37.1; O2SAT 94; BMI 36.3
--- NOTE | 2023-01-05 23:43 | CT_ITS ---
STUDY: CT ABDOMEN AND PELVIS WITH CONTRAST - URINARY TRACT REASON FOR EXAM: Male, 57 years old. abd pain RADIATION DOSAGE (If Supplied By Facility): CTDIvol = ( 31.18 ) mGy, DLP = ( 2019.19 ) mGycm TECHNIQUE: IV 100mL Isovue-300 was administered. Transaxial images were obtained from the dome of the diaphragm to the symphysis pubis in the arterial, nephrographic and excretory phases. Multiplanar coronal and sagittal images were reformatted. Individualized Dose Optimization Techniques Were Used For This CT. COMPARISON: FINDINGS: The visualized lung bases are unremarkable. The visualized portions of the heart are within normal limits. Normal liver. Normal gallbladder and extrahepatic biliary system. Normal spleen. Normal pancreas. Normal bilateral adrenal glands. Normal visualized stomach. There is dilatation of small bowel loops in the left upper quadrant with transition in the distal jejunum suggesting small bowel obstruction most likely due to internal hernia. Normal colon. The appendix is visualized and appears normal. Normal abdominal aorta. No retroperitoneal adenopathy. Normal right kidney. Normal left kidney. Normal urinary bladder. Normal abdominal wall. Normal osseous structures. CT/Abdomen/Pelvis W IV Cont ONLY IMPRESSION: There is dilatation of small bowel loops in the left upper quadrant with transition in the distal jejunum suggesting small bowel obstruction most likely due to internal hernia. Electronically Signed: Sherry Paul MD at 1:29 EDT ,
[2023-01-05] MEDS: Morphine 4 MG/ML Syringe IV (23:59)
[2023-01-05] MEDS: 0.9% Normal Saline 1,000 ML 150 ML IV (23:59)
[2023-01-06] VITALS (15 sets, daily range): BP systolic 112–149; BP diastolic 70–99; PULSE 70–103; RESP 16–18; TEMP 36.3–37.2; O2SAT 90–97; BMI 36.3; BMI 36.6
[2023-01-06] MEDS: Ondansetron 4 MG/2 ML Vial IV
[2023-01-06 00:23] LABS: AST(SGOT) 12 U/L (15-37); Alanine Aminotransfer ALT/SGPT 18 U/L (16-61); Albumin, Serum 3.2 g/dL (3.2-5.0); Alkaline Phosphatase 83 U/L (45-117); Anion Gap 5 (5-15); BUN 12 mg/dL (7-18); BUN/Creat Ratio 9.4 RATIO (10-20); Bilirubin, Direct 0.24 mg/dL (0.00-0.30); Chloride 106 mmol/L (98-107); Creatinine, Serum 1.27 mg/dL (0.70-1.30); EST Glomerular Filtration Rate 62 mL/min (>60); Est Glom Filt Rate - Afr Amer 75 mL/min (>60); Estimated Creatinine Clearance 76.89 ml/min; Globulin 3.6 g/dL (2.2-4.2); Glucose 138 mg/dL (74-106); Lipase 42 U/L (13-75); Potassium 3.8 mmol/L (3.5-5.1); Protein, Total 6.8 g/dL (6.4-8.2); Sodium Level 137 mmol/L (136-145)
[2023-01-06 00:30] LABS: Absolute Lymphocyte Count 0.99 X10^3/uL (0.83-4.51); Absolute Neutrophil Count 11.8 X10^3/uL (2.0-7.7); Basophil# 0.04 X10^3/uL; Basophil% 0.3 % (0-1); Eosinophil# 0.18 X10^3/uL; Eosinophils% 1.3 % (0-5); Hematocrit 55.5 % (40-54); Hemoglobin 18.2 g/dL (13.0-16.5); Lymphocyte # 0.99 X10^3/ul (0.83-4.51); Lymphocyte % 6.9 % (19-41); Mean Corp Hgb Conc 32.8 g/dL (32-36); Mean Corpuscular Hgb 27.6 pg (27.0-32.0); Mean Corpuscular Volume 84.1 fL (80-94); Mean Platelet Vol. 10.4 fl (6.2-12.0); Monocyte# 1.09 X10^3/uL; Monocyte% 7.6 % (0-10); NRBC Flagged by Analyzer 0 % (0-5); Neutrophil # 11.77 X10^3/uL (2.7-7.7); Neutrophil % 82.6 % (47-70); Platelet Count 257 K/mm3 (150-450); RBC Distribution Width CV 15.8 % (11.6-14.6); RBC Distribution Width SD 45.7 fl (35.1-43.9); White Blood Count 14.3 K/mm3 (4.4-11.0)
[2023-01-06 00:31] LABS: Differential Indicated SCAN CRITERIA MET
[2023-01-06 01:03] LABS: Anisocytosis 1+
--- NOTE | 2023-01-06 01:37 | EDS_ITS ---
HPI History of Present Illness Chief Complaint: Abd Pain Informant: patient Onset/Context/Timing Onset: Yesterday Context: Gradual Onset Current Severity: Moderate Maximum Severity: Moderate Narrative Narrative: Patient present secondary to upper abdominal pain and bloating. He and his ate at a [place] restaurant in [place] last evening. After this patient states he just felt very bloated and full. Symptoms persisted throughout the day on Saturday and he presents here late Saturday evening for evaluation. He has had nausea but no vomiting. His last bowel movement was around 2:30 AM on Saturday. He has been passing some gas throughout the remainder of Saturday. He denies abdominal surgery in the past. He has had colonoscopies regularly without any abnormalities. [facility] Medical History Cluster headaches Degeneration of intervertebral disc of lumbosacral region First degree AV block Hemorrhoids Hypercholesterolemia Hypertension Male erectile dysfunction Obesity Onychomycosis Peripheral neuropathy Sleep apnea Spasm of back muscles Vitamin D deficiency Home Medications gabapentin 600 mg tablet 600 mg PO TID 11/07/18 [History Last Taken Unknown] pravastatin 80 mg tablet 80 mg PO DAILY 11/07/18 [History Last Taken Unknown] verapamil 240 mg 24 hr capsule,extended release 240 mg PO DAILY 11/07/18 [History Last Taken Unknown] Cialis PRN PRN ed 05/03/19 [History Last Taken Unknown] Imitrex PRN PRN Headache 05/03/19 [History Last Taken Unknown] Terbinafine PRN PRN SKIN 05/03/19 [History Last Taken Unknown] liraglutide 0.6 mg/0.1 mL (18 mg/3 mL) subcutaneous pen injector 0.6 mg SQ DAILY 05/03/19 [History Last Taken Unknown] ergocalciferol (vitamin D2) 1,250 mcg (50,000 unit) capsule 1,250 mcg PO QWEEK 01/12/21 [History Last Taken Unknown] Allergy/AdvReac Type Severity Reaction Status Date / Time divalproex sodium Allergy Intermediate leg Verified 01/05/23 23:31 [From Depakote] swelling/fatique Family History Grandmother Cancer uterine/ovarian Mother Diabetes Hypercholesterolemia Grandfather Heart disease Father Cancer multiple myeloma Surgical History excision fatty cysts on back and arms H/O basal cell carcinoma excision History of arthroscopy of shoulder History of back surgery History of bilateral inguinal hernia repair History of vasectomy history repair left index finger Social History Smoking Status: Never smoker alcohol intake: current alcohol intake frequency: a few times a month substance use type: does not use what type of physical activity do you participate in: walking ROS ROS ED Constitutional Constitutional ED: Denies chills or fever(s) Eyes Eyes: Denies change in vision or discharge from eye(s) ENT ENT ED: Denies discharge from eye(s), rhinorrhea or sore throat Cardiovascular Cardiovascular: Denies chest pain or palpitations Respiratory/Chest Respiratory/Chest: Denies cough or dyspnea Gastrointestinal Gastrointestinal: Reports abdominal pain and nausea; Denies diarrhea or vomiting Genitourinary Genitourinary ED: Denies dysuria Musculoskeletal Musculoskeletal: Denies back pain or extremity pain Integumentary Denies Abrasions or rash Neurologic Neurologic: Denies headache(s) or weakness Psychiatric Psychiatric: Denies anxiety or depression Allergic/Immunologic Allergic/Immunologic ED: Denies lip swelling or urticaria EXAM Physical Exam Const Vital Signs: 01/05/23 23:31 01/06/23 00:21 Temperature 98.8 F Temperature Source Temporal Pulse Rate 88 Respiratory Rate 18 Blood Pressure 163/129 H 126/94 H Blood Pressure Mean 140 104 Pulse Ox 94 Oxygen Delivery Method Room Air Positive well nourished and well developed General Appearance ED: well developed HEENT Reports normocephalic and head/scalp atraumatic Eyes PERRL and EOMs intact bilaterally Neck supple Chest Wall inspection of chest normal and palpation of chest normal Resp normal respiratory effort and clear to auscultation bilaterally Cardio regular rate and regular rhythm GI GI Narrative: Abdomen soft with mild diffuse tenderness. Abdomen is distended. Active bowel sounds are noted. Palpation: soft Extremity normal to inspection Neuro oriented x3 and no sensory deficits noted Sensorium / Orientation: alert Motor Exam: strength 5/5 throughout Psych mental status grossly normal Skin no rashes or lesions noted MDM MDM MDM Narrative Medical decision making narrative: Patient given morphine and Zofran along with IV fluids. Labwork obtained to evaluate for leukocytosis, anemia, and electrolyte derangement. CT scan of the abdomen pelvis with IV contrast obtained to evaluate for bowel obstruction or other acute abnormality. Lab Data Attestation: I reviewed the patient's lab results. Labs: Laboratory Results - last 24 hr 01/06/23 00:03 WBC 14.3 H RBC 6.60 H Hgb 18.2 H* Hct 55.5 H MCV 84.1 MCH 27.6 MCHC 32.8 RDW Std Deviation 45.7 H RDW Coeff of Lisa 15.8 H Plt Count 257 MPV 10.4 Immature Gran % (Auto) 1.300 H Neut % (Auto) 82.6 H Lymph % (Auto) 6.9 L Brooke % (Auto) 7.6 Eos % (Auto) 1.3 Baso % (Auto) 0.3 Absolute Neuts (auto) 11.8 H Absolute Lymphs (auto) 0.99 Nucleated RBC % 0 Diff Path Review May foll Anisocytosis 1+ Sodium 137 Potassium 3.8 Chloride 106 Carbon Dioxide 26.0 Anion Gap 5 BUN 12 Creatinine 1.27 Estim Creat Clear Calc 76.89 Est GFR (MDRD) Af Amer 75 Est GFR (MDRD) Non-Af 62 BUN/Creatinine Ratio 9.4 L Glucose 138 H Calcium 9.0 Total Bilirubin 0.90 Direct Bilirubin 0.24 AST 12 L ALT 18 Alkaline Phosphatase 83 Total Protein 6.8 Albumin 3.2 Globulin 3.6 Lipase 42 Radiography Diagnostic Testing: Clinical Impression(s) from Imaging Studies Abdomen/Pelvis CT 01/05/23 23:43 IMPRESSION: There is dilatation of small bowel loops in the left upper quadrant with transition in the distal jejunum suggesting small bowel obstruction most likely due to internal hernia. Electronically Signed: Sherry Paul MD at 1:29 EDT , KUB X-Ray 01/06/23 02:20 IMPRESSION: NG tube in good position in the gastric lumen. Dilated small bowel loops in the upper abdomen suggesting bowel obstruction. Electronically Signed: Sherry Paul MD at 2:47 EDT , Treatment and Re-Evaluation :: CBC reveals a white count of 14.3 with 82% neutrophils. Hemoglobin is concentrated at 18.2. Chemistry studies largely unremarkable. Creatinine is 1.27. Glucose is 138. LFTs and lipase are normal. CT scan of the abdomen pelvis reveals dilation of the small bowel loops in the left upper quadrant with transition in the distal jejunum suggesting a small bowel obstruction most likely due to an internal hernia. I have spoken with Dr. Ramirez, on-call for surgery. He did asked that an NG tube be placed and he will be in to see the patient. Discharge Plan Triage Chief Complaint: Abd Pain ED Provider: Manuela Casas Dx/Rx/DC Orders Clinical Impression: SBO (small bowel obstruction) Prescriptions: No Action verapamil 240 mg capsule,ext rel. pellets 24 hr 240 mg PO DAILY pravastatin 80 mg tablet 80 mg PO DAILY gabapentin 600 mg tablet 600 mg PO TID ergocalciferol (vitamin D2) 1,250 mcg (50,000 unit) capsule 1,250 mcg PO QWEEK liraglutide 0.6 MG/0.1 ML pen injector 0.6 mg SQ DAILY Cialis PRN PRN (Reason: ed) Imitrex PRN PRN (Reason: Headache) Terbinafine PRN PRN (Reason: SKIN) Primary Care Provider: Sonali Lechuga Referrals: Sonali Lechuga MD [Primary Care Provider] - Disposition Disposition: Acute Care Hospital [facility]
--- NOTE | 2023-01-06 02:20 | RAD_ITS ---
INDICATION: NG Insertion EXAMINATION/TECHNIQUE: X-RAY - XR Abdomen 1 View COMPARISON: FINDINGS: NG tube in good position in the gastric lumen. BOWEL GAS PATTERN: Dilated small bowel loops in the upper abdomen suggesting bowel obstruction. FREE AIR: Not assessed on a single supine view. ORGANOMEGALY: Not seen. CALCIFICATIONS: No abnormal calcifications observed. LOWER CHEST: No acute pathology. BONES AND SOFT TISSUES: No acute pathology. RAD/Abdomen Single View (Portable) IMPRESSION: NG tube in good position in the gastric lumen. Dilated small bowel loops in the upper abdomen suggesting bowel obstruction. Electronically Signed: Sherry Paul MD at 2:47 EDT ,
--- NOTE | 2023-01-06 03:02 | HP.PCM_ITS ---
HPI - General General Date of Service: 01/06/23 Chief Complaint: Acute onset abdominal pain HPI Narrative NATALIA MARTINEZ, is a 57 M who presents to [facility] with complaints of acute onset abdominal pain beginning nearly 36 hours ago after consuming a meal of [place] food as he departed [place] on his return to [place]. He notes that he had pain in a bandlike distribution across his upper abdomen with some associated distention. He notes that he was still able to eat yesterday up until 2100. He simply had a very full and uncomfortable feeling with his distention. He denies any significant nausea until his presentation here and states that he primarily had reflux which is a symptom he does not normally suffer from. He has had no prior experience of abdominal pain of this character. He reports that he is still passing flatus. ED work-up is notable for CBC with leukocytosis of 14,000. He is also noted to be probably hemoconcentrated with a hemoglobin of 18.2. His creatinine of 1.27 is modestly elevated over his baseline in the high 0.9's. CT imaging of the abdomen pelvis is read by radiology as concerning for small bowel obstruction secondary to probable internal hernia within the jejunal segment. Patient denies any prior abdominal surgery apart from bilateral inguinal hernia repair as a pediatric patient. He denies any use of blood thinners and states that he is overall healthy. He does have a diagnosis of obstructive sleep apnea and is noncompliant generally with his prescription for CPAP. Patient denies any significant familial history of GI diagnoses. He also denies any awareness of strong cancer history but reports that his father was diagnosed with multiple myeloma. Nasogastric tube was placed by emergency medicine and patient reports some relief of his distention discomfort with this intervention. FOR[facility]LY [facility] Medical History Cluster headaches Degeneration of intervertebral disc of lumbosacral region First degree AV block Hemorrhoids Hypercholesterolemia Hypertension Male erectile dysfunction Obesity Onychomycosis Peripheral neuropathy Sleep apnea Spasm of back muscles Vitamin D deficiency Home Medications gabapentin 600 mg tablet 600 mg PO TID 11/07/18 [History Last Taken Unknown] pravastatin 80 mg tablet 80 mg PO DAILY 11/07/18 [History Last Taken Unknown] verapamil 240 mg 24 hr capsule,extended release 240 mg PO DAILY 11/07/18 [Hi story Last Taken Unknown] Cialis PRN PRN ed 05/03/19 [History Last Taken Unknown] Imitrex PRN PRN Headache 05/03/19 [History Last Taken Unknown] Terbinafine PRN PRN SKIN 05/03/19 [History Last Taken Unknown] liraglutide 0.6 mg/0.1 mL (18 mg/3 mL) subcutaneous pen injector 0.6 mg SQ DAILY 05/03/19 [History Last Taken Unknown] ergocalciferol (vitamin D2) 1,250 mcg (50,000 unit) capsule 1,250 mcg PO QWEEK 01/12/21 [History Last Taken Unknown] Allergy/AdvReac Type Severity Reaction Status Date / Time divalproex sodium Allergy Intermediate leg Verified 01/05/23 23:31 [From Depakote] swelling/fatique Family History Grandmother Cancer uterine/ovarian Mother Diabetes Hypercholesterolemia Grandfather Heart disease Father Cancer multiple myeloma Surgical History excision fatty cysts on back and arms H/O basal cell carcinoma excision History of arthroscopy of shoulder History of back surgery History of bilateral inguinal hernia repair History of vasectomy history repair left index finger Social History Smoking Status: Never smoker alcohol intake: current alcohol intake frequency: a few times a month substance use type: does not use what type of physical activity do you participate in: walking ROS Gastrointestinal Gastrointestinal: Reports abdominal pain and nausea; Denies constipation or vomiting Vital Signs Vital Signs Vital Signs: 01/05/23 23:31 01/06/23 00:21 Temperature 98.8 F Temperature Source Temporal Pulse Rate 88 Respiratory Rate 18 Blood Pressure 163/129 H 126/94 H Blood Pressure Mean 140 104 Pulse Ox 94 Oxygen Delivery Method Room Air Weight Weight: 298 lb 9.6 oz Body Mass Index (BMI) 36.3 Physical Exam Const alert and oriented x3 Constitutional Narrative: Mild distress from nasogastric tube irritation in the abdominal discomfort General Appearance: cooperative Resp normal respiratory effort GI GI Narrative: Distended, soft, focally tender to palpation of majority of the left upper quadrant. Some guarding present with this exam. No palpable hernia detected. Results Lab / Micro Data 01/06/23 00:03 01/06/23 00:03 Labs: Laboratory Results - last 24 hr 01/06/23 00:03: WBC 14.3 H, RBC 6.60 H, Hgb 18.2 H*, Hct 55.5 H, MCV 84.1, MCH 27.6, MCHC 32.8, RDW Std Deviation 45.7 H, RDW Coeff of Lisa 15.8 H, Plt Count 257, MPV 10.4, Immature Gran % (Auto) 1.300 H, Neut % (Auto) 82.6 H, Lymph % (Auto) 6.9 L, [place] % (Auto) 7.6, Eos % (Auto) 1.3, Baso % (Auto) 0.3, Absolute Neuts (auto) 11.8 H, Absolute Lymphs (auto) 0.99, Nucleated RBC % 0, Diff Path Review May foll, Anisocytosis 1+, Sodium 137, Potassium 3.8, Chloride 106, Carbon Dioxide 26.0, Anion Gap 5, BUN 12, Creatinine 1.27, Estim Creat Clear Calc 76.89, Est GFR (MDRD) Af Amer 75, Est GFR (MDRD) Non-Af 62, BUN/Creatinine Ratio 9.4 L, Glucose 138 H, Calcium 9.0, Total Bilirubin 0.90, Direct Bilirubin 0.24, AST 12 L, ALT 18, Alkaline Phosphatase 83, Total Protein 6.8, Albumin 3.2, Globulin 3.6, Lipase 42 Radiology Impression Abdomen/Pelvis CT 01/05/23 23:43 IMPRESSION: There is dilatation of small bowel loops in the left upper quadrant with transition in the distal jejunum suggesting small bowel obstruction most likely due to internal hernia. Electronically Signed: Sherry Paul MD at 1:29 EDT , KUB X-Ray 01/06/23 02:20 IMPRESSION: NG tube in good position in the gastric lumen. Dilated small bowel loops in the upper abdomen suggesting bowel obstruction. Electronically Signed: Sherry Paul MD at 2:47 EDT , Assessment & Plan Assessment/Plan (1) SBO (small bowel obstruction): PLAN: This is a 57-year-old male who presents with just under 36 hours of symp toms of acute onset upper abdominal pain and distention. There is also now some mild nausea. ED work-up is significant for leukocytosis and evidence of dehydration. CT imaging concerning for small bowel obstruction secondary to internal hernia, however, patient has no prior history of surgical intervention. In the absence of this history, his presentation is particularly unusual for both a small bowel obstruction and then 1 secondary to an internal hernia. Yet, there is a isolated segment of jejunum dilated with air-fluid levels and surrounding haziness concerning for edema/possible malperfusion. With his exam of focal tenderness in this area, I have recommended proceeding emergently to the operating room for evaluation given the risk of bowel ischemia. I have shared with him and his that I would plan for a laparoscopic approach, but if his bowel distention preclude such an approach he may require exploratory laparotomy. I have also shared there may be an indication to perform a bowel resection with bowel anastomosis. They expressed acceptance of this information and wish to proceed as described. Anesthesia and the operating room have been notified. We will plan for transfer from ED to the OR with subsequent inpatient admission.
[2023-01-06 03:46] LABS: Lactic Acid 0.9 mmol/L (0.4-1.9)
[2023-01-06] MEDS: Bupivacaine 0.25% 30 ML Vial (05:29)
--- NOTE | 2023-01-06 05:47 | OP.PCM_ITS ---
Report of Operation Date of Procedure: 01/06/23 Pre-Operative Diagnosis: Small bowel obstruction with CT findings concerning for possible internal hernia Post-Operative Diagnosis: Dilated small bowel with no signs of mechanical cause for obstruction Surgery/Procedure Performed:: Diagnostic laparoscopy Description of Surgical Findings:: - Dilated proximal small bowel (majority of jejunal segment)transitioning to decompressed (normal caliber) ileum. Slightly injected appearance of the serosa with a few scattered mesenteric lymph nodes noted ? Grossly normal-appearing colon, liver, gallbladder Surgeon: Charles Ramirez dairy processing equipment operator: Amie Garza Type of Anesthesia: General/Supplemental Anesthesiologist: Concetta Meyers Specimen's removed: NA Drains: NA Estimated Blood Loss (mL): 10 Description of Procedure: After appropriate identification in the preoperative holding area, the patient was brought to the operating room and placed supine on the operating room table. Preoperative antibiotics were completed by anesthesia. Patient was then induced with general endotracheal anesthetic. The abdomen was prepped and draped in usual sterile fashion. Formal timeout was conducted to confirm both the patient and the procedure. A supraumbilical incision was made and carried down to the level of the fascia which was sharply opened. After opening the peritoneum in like fashion a finger sweep was made to confirm position, and a balloon trocar was placed and pneumoperitoneum was established to 15 mmHg. Patient was positioned in reverse Trendelenburg with the right side down. Two additional 5 mm trocars were placed initially on either side of this index trocar just slightly cephalad and approximately a handsbreadth away under laparoscopic visualization. However I required a third additional trocar (5 mm) to be placed in the left upper quadrant after noting the need for retraction of the omentum. Prior to the placement of each port I instilled local anesthetic under laparoscopic visualization to assist with postop analgesia. Under laparoscopic inspection I identified the jejunal limb coming from the tethered ligament of Treitz and began running this bowel distally in a hand over hand fashion taking great care to avoid injury to the bowel. This bowel was mildly dilated initially but became progressively more dilated as I proceeded. In this area of greater dilatation the serosa was mildly injected, but there were no signs of malperfusion otherwise. Ultimately this process led me to decompressed distal small bowel likely within the region of the proximal ileum. Significantly there were no signs of hernia, adhesions, stricture, or other abnormality and as I elevated the proximal bowel it spontaneously decompressed into the normal caliber distal bowel. Several enlarged mesenteric lymph nodes were noted but did not appear pathologic in any other way. To be doubly sure of this result I asked anesthesia to place the patient in Trendelenburg positioning and then ran the bowel from the terminal ileum proximally to the dilated segment and ultimately back to the ligament of Treitz. At this progression I once again identified a general transition zone in the proximal ileum but no cause for mechanical obstruction and the bowel, once again, appeared well perfused. Satisfied with this result I terminated the procedure and set about closing our supraumbilical port site. Given the thickness of the patient's abdominal wall I elected to perform the fascial closure using a Deshawn Menjivar suture passer and did so under direct laparoscopic visualization using a #1 PDS suture. Pneumoperitoneum was evacuated and the sutures were tied. The fascia was injected with additional local anesthetic for a total instillation 30 mL 0.25% bupivacaine. Skin of the port sites was closed with 4-0 Monocryl in a subcuticular fashion. Steri-Strips and OpSite dressings were applied. Patient tolerated procedure well without any apparent complications. They were awoken from general anesthetic without issue and transferred to post anesthesia care unit for ongoing recovery. Grafts/Implants Used: NA Complications NA Admit VTE Documentation VTE Mechan Device Prophylaxis: SCD's
[2023-01-06 06:41] LABS: Absolute Lymphocyte Count 1.11 X10^3/uL (0.83-4.51); Absolute Neutrophil Count 10.2 X10^3/uL (2.0-7.7); Basophil# 0.03 X10^3/uL; Basophil% 0.2 % (0-1); Eosinophils% 2.4 % (0-5); Hemoglobin 17.1 g/dL (13.0-16.5); Lymphocyte # 1.11 X10^3/ul (0.83-4.51); Lymphocyte % 8.9 % (19-41); Mean Corp Hgb Conc 31.7 g/dL (32-36); Mean Corpuscular Hgb 27.3 pg (27.0-32.0); Mean Corpuscular Volume 86.3 fL (80-94); Mean Platelet Vol. 9.9 fl (6.2-12.0); Monocyte# 0.84 X10^3/uL; Monocyte% 6.7 % (0-10); NRBC Flagged by Analyzer 0 % (0-5); Neutrophil # 10.21 X10^3/uL (2.7-7.7); Neutrophil % 81.4 % (47-70); Platelet Count 227 K/mm3 (150-450); RBC Distribution Width CV 15.9 % (11.6-14.6); Red Blood Count 6.26 M/mm3 (4.6-6.2); White Blood Count 12.5 K/mm3 (4.4-11.0)
[2023-01-06 07:02] LABS: Anion Gap 4 (5-15); BUN 11 mg/dL (7-18); BUN/Creat Ratio 7.7 RATIO (10-20); Calcium,Total 8.4 mg/dL (8.5-10.1); Chloride 106 mmol/L (98-107); Creatinine, Serum 1.42 mg/dL (0.70-1.30); EST Glomerular Filtration Rate 54 mL/min (>60); Est Glom Filt Rate - Afr Amer 66 mL/min (>60); Estimated Creatinine Clearance 68.77 ml/min; Glucose 114 mg/dL (74-106); Magnesium 1.8 mg/dL (1.6-2.6); Phosphorus 3.3 mg/dL (2.5-4.9); Potassium 4.6 mmol/L (3.5-5.1); Sodium Level 139 mmol/L (136-145)
[2023-01-06] MEDS: 0.9% Normal Saline 1,000 ML 125 ML IV ×3 (08:49→21:37)
[2023-01-06] MEDS: BENZOCAINE/MENTHOL 1 LOZENGE MUCOUS MEM ×5 (08:49→20:51)
[2023-01-06] MEDS: HYDROmorphone 0.5 MG/0.5 ML SYRINGE IV (16:34)
[2023-01-06] MEDS: 0.9% Saline Lock 10 ML Syringe IV (16:35)
[2023-01-06] MEDS: Gabapentin 300 MG Capsule PO (21:19)
[2023-01-06] MEDS: Fluticasone 0.05% 1 SPRAY NASAL.SRY NASAL (21:19)
[2023-01-06] MEDS: Acetaminophen 325 MG Tablet 650 MG PO (21:36)
[2023-01-07 01:54] VITALS: BP 121/90; PULSE 91; RESP 18; TEMP 37.1; O2SAT 94
[2023-01-07] MEDS: 0.9% Normal Saline 1,000 ML 125 ML IV ×3 (03:42→19:28)
[2023-01-07] MEDS: BENZOCAINE/MENTHOL 1 LOZENGE MUCOUS MEM (03:43)
[2023-01-07] MEDS: Acetaminophen 325 MG Tablet 650 MG PO (05:57)
[2023-01-07] MEDS: Gabapentin 300 MG Capsule PO ×3 (05:57→21:10)
[2023-01-07 06:13] VITALS: BP 117/78; PULSE 88; RESP 18; TEMP 37; O2SAT 93
[2023-01-07 06:15] LABS: Absolute Lymphocyte Count 1.17 X10^3/uL (0.83-4.51); Absolute Neutrophil Count 11.7 X10^3/uL (2.0-7.7); Basophil# 0.02 X10^3/uL; Basophil% 0.1 % (0-1); Eosinophil# 0.02 X10^3/uL; Eosinophils% 0.1 % (0-5); Hematocrit 49.8 % (40-54); Hemoglobin 16.3 g/dL (13.0-16.5); Lymphocyte # 1.17 X10^3/ul (0.83-4.51); Lymphocyte % 8.1 % (19-41); Mean Corp Hgb Conc 32.7 g/dL (32-36); Mean Corpuscular Hgb 27.6 pg (27.0-32.0); Mean Corpuscular Volume 84.3 fL (80-94); Mean Platelet Vol. 9.9 fl (6.2-12.0); Monocyte# 1.54 X10^3/uL; Monocyte% 10.6 % (0-10); NRBC Flagged by Analyzer 0 % (0-5); Neutrophil # 11.69 X10^3/uL (2.7-7.7); Neutrophil % 80.8 % (47-70); POSITIVE DIFFERENTIAL YES; Platelet Count 238 K/mm3 (150-450); RBC Distribution Width SD 46.5 fl (35.1-43.9); Red Blood Count 5.91 M/mm3 (4.6-6.2); White Blood Count 14.5 K/mm3 (4.4-11.0)
[2023-01-07 06:43] LABS: Anion Gap 5 (5-15); BUN 17 mg/dL (7-18); BUN/Creat Ratio 14.4 RATIO (10-20); Chloride 109 mmol/L (98-107); Creatinine, Serum 1.18 mg/dL (0.70-1.30); Differential Indicated SCAN CRITERIA MET; EST Glomerular Filtration Rate 67 mL/min (>60); Est Glom Filt Rate - Afr Amer 81 mL/min (>60); Estimated Creatinine Clearance 82.75 ml/min; Glucose 95 mg/dL (74-106); Magnesium 1.9 mg/dL (1.6-2.6); Phosphorus 2.7 mg/dL (2.5-4.9); Sodium Level 139 mmol/L (136-145)
[2023-01-07 06:48] LABS: Anisocytosis 1+
[2023-01-07 09:19] VITALS: BP 133/90; PULSE 80; RESP 16; TEMP 36.7; O2SAT 97
[2023-01-07] MEDS: Pravastatin 80 MG Tablet PO (09:22)
--- NOTE | 2023-01-07 09:47 | PCM.PN.SRG ---
Subjective Subjective Patient seen and examined during AM rounds. He is found sitting out of bed in a chair. He states that he suffers from sciatica and therefore was up walking much of the night. He complains of some discomfort from his nasogastric tube, but reports improvement in his abdominal discomfort. He also describes minimal discomfort with his incisions. He confirms that he has been passing flatus all evening. Objective Data Objective Data Vital Signs: Vital Signs Temp Pulse Resp BP Pulse Ox O2 Del Method O2 Flow Rate 98.1 F 80 16 133/90 H 97 Room Air 2 01/07/23 09:19 01/07/23 09:19 01/07/23 09:19 01/07/23 09:19 01/07/23 09:19 01/07/23 09:19 01/07/23 01:54 Oxygen Flow Rate (L/min) 2 Oxygen Delivery Method Room Air Weight: 300 lb 14.896 oz Body Mass Index (BMI) 36.6 Intake & Output: Intake and Output for Last 24 Hours 01/05/23 01/06/23 01/07/23 23:59 23:59 23:59 Intake Total 3372.50 / 3372.50 760.42 / 760.42 Output Total 1450 / 1450 550 / 550 Balance 1922.50 / 1922.50 210.42 / 210.42 Lab / Micro Data 01/07/23 05:55 01/07/23 05:55 Labs: Laboratory Results - last 24 hr 01/07/23 05:55: WBC 14.5 H, RBC 5.91, Hgb 16.3, Hct 49.8, MCV 84.3, MCH 27.6, MCHC 32.7, RDW Std Deviation 46.5 H, RDW Coeff of Lisa 15.0 H, Plt Count 238, MPV 9.9, Immature Gran % (Auto) 0.300, Neut % (Auto) 80.8 H, Lymph % (Auto) 8.1 L, [place] % (Auto) 10.6 H, Eos % (Auto) 0.1, Baso % (Auto) 0.1, Absolute Neuts (auto) 11.7 H, Absolute Lymphs (auto) 1.17, Nucleated RBC % 0, Diff Path Review May foll, Anisocytosis 1+, Sodium 139, Potassium 4.0, Chloride 109 H, Carbon Dioxide 25.0, Anion Gap 5, BUN 17, Creatinine 1.18, Estim Creat Clear Calc 82.75, Est GFR (MDRD) Af Amer 81, Est GFR (MDRD) Non-Af 67, BUN/Creatinine Ratio 14.4, Glucose 95, Calcium 8.0 L, Phosphorus 2.7, Magnesium 1.9 Physical Exam Const oriented x3 and no apparent distress Resp normal respiratory effort GI GI Narrative: Nasogastric tube in place with thin output. (Canister has been just changed). Patient's abdomen is mildly distended and there is possible small hematomas over the abdominal wall near the port sites. Patient has no significant tenderness over these areas. Operative dressings remain clean dry and intact. Assessment & Plan Assessment/Plan (1) SBO (small bowel obstruction): PLAN: This is a 57-year-old male who presents with just under 36 hours of symptoms of acute onset upper abdominal pain and distention. He has now postoperative day 1 from diagnostic laparoscopy with negative findings for internal hernia or mechanical bowel obstruction. Overnight experienced return of bowel function was consistent flatus. NG tube output over past 24 hours / 550 mL, however, I get the sense that the majority of this volume was directly after his presentation has been tapering. Given this impression, I am planning for a clamp trial this morning. If he has less than 100 mL out after 4 hours of clamping we will pull his tube and initiate diet. We will monitor his abdominal exam closely and have requested use of ice given the suspicion for small abdominal wall hematomas. Neuro: As needed Dilaudid, added as needed acetaminophen, ordered patient's home Neurontin Pulm/CV: Incentive spirometer, as needed antihypertensive FEN/GI: Monitor daily electrolytes, continue n.p.o. status, follow-up clamp trial (patient should be out of bed in a chair or walking during this to minimize aspiration) : No current issues Heme/ID: Continue to trend CBC, leukocytosis worsened again today?this could be secondary to his primary issue since he just had 1 dose of preoperative antibiotics or could be reactive from surgery Endo: No current issues Proph: SCDs Dispo: Continue inpatient care Charges/Coding Visit Charges Inpatient E&M: 00672 Subs Hosp L2
--- NOTE | 2023-01-07 11:50 | CASEMGMT ---
THAIS CALLAHAN Assessment: Face to Face with pt for initial transition planning/care coordination assessment. RN SINDY introduced self and role at [facility], pt voices understanding and consents to assessment. Pt is A/O x4 and answers all questions appropriately at this time. Pt sitting up in chair in no distress with NG in. Care providers, pharmacy, and demographics verified/updated. Admitting Dx: SBO PCP:Ankush Specialists:Pt denies Preferred [facility]acy[facility] Insurance: [employer] Prescription Benefit: yes LNOK: Cynthia Rosales, Living Arrangements: Pt lives with and son in a single story home with 1 step to enter. Pt reports he is I in ADL's and denies concerns at home. Transportation: Pt drives self and denies concerns with transportation. DME/HHC/SNF: Pt has a bipap that he sometimes uses, no other DME. Pt denies hx of HHC or SNF stays. Pt states no concerns with going home at time of dc. Pt states no further concerns/needs. CM to follow. Advised pt to ask CM if any further question/concerns/needs arise, voices understanding. Pt Goal: Home Plan: Home
[2023-01-07 14:46] VITALS: BP 141/94; PULSE 82; RESP 16; TEMP 36.4; O2SAT 97
[2023-01-07 17:21] VITALS: BP 148/91; PULSE 81; RESP 18; TEMP 36.7; O2SAT 97
[2023-01-07 20:00] VITALS: BP 139/93; PULSE 86; RESP 16; TEMP 36.8; O2SAT 94
[2023-01-07] MEDS: Fluticasone 0.05% 1 SPRAY NASAL.SRY NASAL (21:09)
[2023-01-08 02:15] VITALS: BP 120/80; PULSE 87; RESP 16; TEMP 36.9; O2SAT 93
[2023-01-08] MEDS: 0.9% Normal Saline 1,000 ML 125 ML IV (02:57)
[2023-01-08] MEDS: Gabapentin 300 MG Capsule PO ×2 (05:51→14:23)
[2023-01-08 06:05] LABS: Absolute Neutrophil Count 6.3 X10^3/uL (2.0-7.7); Basophil# 0.03 X10^3/uL; Basophil% 0.3 % (0-1); Eosinophil# 0.23 X10^3/uL; Eosinophils% 2.4 % (0-5); Hematocrit 48.2 % (40-54); Hemoglobin 15.4 g/dL (13.0-16.5); Mean Corpuscular Hgb 27.4 pg (27.0-32.0); Mean Corpuscular Volume 85.6 fL (80-94); Mean Platelet Vol. 9.7 fl (6.2-12.0); Monocyte# 0.91 X10^3/uL; Monocyte% 9.6 % (0-10); NRBC Flagged by Analyzer 0 % (0-5); Neutrophil # 6.29 X10^3/uL (2.7-7.7); Neutrophil % 66.2 % (47-70); Platelet Count 218 K/mm3 (150-450); RBC Distribution Width CV 15.1 % (11.6-14.6); RBC Distribution Width SD 47.2 fl (35.1-43.9); Red Blood Count 5.63 M/mm3 (4.6-6.2); White Blood Count 9.5 K/mm3 (4.4-11.0)
[2023-01-08 06:29] LABS: Anion Gap 3 (5-15); BUN 16 mg/dL (7-18); BUN/Creat Ratio 15.1 RATIO (10-20); Calcium,Total 7.9 mg/dL (8.5-10.1); Chloride 110 mmol/L (98-107); Creatinine, Serum 1.06 mg/dL (0.70-1.30); EST Glomerular Filtration Rate 76 mL/min (>60); Est Glom Filt Rate - Afr Amer 92 mL/min (>60); Estimated Creatinine Clearance 92.12 ml/min; Glucose 90 mg/dL (74-106); Phosphorus 2.5 mg/dL (2.5-4.9); Potassium 4.1 mmol/L (3.5-5.1); Sodium Level 140 mmol/L (136-145)
[2023-01-08 09:55] LABS: Pathologist Review Reviewed
[2023-01-08 10:08] VITALS: BP 113/67; PULSE 99; RESP 17; TEMP 36.8; O2SAT 91
[2023-01-08 10:12] LABS: Pathologist Review Reviewed
[2023-01-08] MEDS: Pravastatin 80 MG Tablet PO (10:19)
--- NOTE | 2023-01-08 11:06 | PCM.PN.SRG ---
Subjective Subjective Patient seen and examined during AM rounds. He is found resting peacefully in bed. He states that he had a better overnight course with less discomfort. He denies any nausea or vomiting response to liquids he trialed yesterday. Reports improved abdominal discomfort. Reports an appetite for diet advance. Objective Data Objective Data Vital Signs: Vital Signs Temp Pulse Resp BP Pulse Ox O2 Del Method O2 Flow Rate 98.3 F 99 17 113/67 91 Room Air 2 01/08/23 10:08 01/08/23 10:08 01/08/23 10:08 01/08/23 10:08 01/08/23 10:08 01/08/23 10:28 01/07/23 01:54 Oxygen Flow Rate (L/min) 2 Oxygen Delivery Method Room Air Weight: 300 lb 14.896 oz Body Mass Index (BMI) 36.6 Intake & Output: Intake and Output for Last 24 Hours 01/06/23 01/07/23 01/08/23 23:59 23:59 23:59 Intake Total 3372.50 / 3372.50 3637.25 / 3637.25 1829.17 / 1829.17 Output Total 1450 / 1450 625 / 625 Balance 1922.50 / 1922.50 3012.25 / 3012.25 1829.17 / 1829.17 Lab / Micro Data 01/08/23 05:42 01/08/23 05:42 Labs: Laboratory Results - last 24 hr 01/06/23 00:03: Diff Path Review Reviewed 01/07/23 05:55: Diff Path Review Reviewed 01/08/23 05:42: WBC 9.5, RBC 5.63, Hgb 15.4, Hct 48.2, MCV 85.6, MCH 27.4, MCHC 32.0, RDW Std Deviation 47.2 H, RDW Coeff of Lisa 15.1 H, Plt Count 218, MPV 9.7, Immature Gran % (Auto) 0.500, Neut % (Auto) 66.2, Lymph % (Auto) 21.0, [place] % (Auto) 9.6, Eos % (Auto) 2.4, Baso % (Auto) 0.3, Absolute Neuts (auto) 6.3, Absolute Lymphs (auto) 2.00, Nucleated RBC % 0, Sodium 140, Potassium 4.1, Chloride 110 H, Carbon Dioxide 27.0, Anion Gap 3 L, BUN 16, Creatinine 1.06, Estim Creat Clear Calc 92.12, Est GFR (MDRD) Af Amer 92, Est GFR (MDRD) Non-Af 76, BUN/Creatinine Ratio 15.1, Glucose 90, Calcium 7.9 L, Phosphorus 2.5, Magnesium 2.0 Physical Exam Const oriented x3 and no apparent distress Resp normal respiratory effort GI GI Narrative: Decreased abdominal distention, persistent ecchymosis around port sites consistent with subcutaneous hematoma of supraumbilical and paramedian port sites. No significant tenderness with palpation. Patient's abdomen is soft. Steri-Strips remain intact over port sites. Assessment & Plan Assessment/Plan (1) SBO (small bowel obstruction): PLAN: This is a 57-year-old male who presents with just under 36 hours of symptoms of acute onset upper abdominal pain and distention. He has now postoperative day 2 from diagnostic laparoscopy with negative findings for internal hernia or mechanical bowel obstruction. Nasogastric tube was removed yesterday after a successful clamp trial and patient has been tolerating liquids. Given this tolerance, will advance to a transitional diet. If he does well with this he may be granted discharged home. Neuro: Discontinue as needed Dilaudid, added as needed acetaminophen, ordered patient's home Neurontin Pulm/CV: Incentive spirometer, as needed antihypertensive FEN/GI: Monitor daily electrolytes, creatinine normalized, advance to transitional diet, follow for tolerance : No current issues Heme/ID: Continue to trend CBC, leukocytosis normalized today?and patient remains afebrile without signs of infection Endo: No current issues Proph: SCDs Dispo: Possible discharge home later today
--- NOTE | 2023-01-08 12:54 | DCINST_ITS ---
Discharge Instructions Diet Discharge Diet: Soft diet Activity Discharge Activity: May Not Drive (No driving while using narcotic pain medication) and May Shower Ice area for (Minutes): 20 Lifting Restrictions: No lifting greater than 15 pounds for 2 weeks after surgery Dressing / Incision Call your doctor if your incision/area has: Continuous Slow Oozing, Sudden Increased Bleeding, Increased Pain/ Swelling, Increased Redness, Foul Smelling Discharge and Swelling at the incision site Call your doctor if you observe: Fever of 101 or Higher, Inability to have a bowel movement, Prolonged hiccupping and Uncontrolled pain Cleanse incision/area with: Soap & Water Additional Dressing/Incision Instructions:: Please leave Steri-Strips intact until they fall off spontaneously or are taken off at your follow-up visit Follow Up Care Please Follow Up With: Charles Ramirez MD When: 7 days postop Test Results: Test results from this visit will be discussed in further detail at your follow- up appointment, if applicable. Discharge Plan Admission Admit Date/Time: 01/06/23 05:42 Primary Reason for Your Visit: Small bowel obstruction Attending Provider: Charles Ramirez Primary Care Provider: Sonali Lechuga Discharge Orders/Prescriptions Prescriptions: New oxycodone 5 mg tablet 5 mg PO Q6H PRN (Reason: pain) 3 Days Qty: 10 0RF Continued verapamil 240 mg capsule,ext rel. pellets 24 hr 480 mg PO QHS pravastatin 80 mg tablet 80 mg PO DAILY gabapentin 600 mg tablet 300 mg PO TID ergocalciferol (vitamin D2) 1,250 mcg (50,000 unit) capsule 1,250 mcg PO QWEEK Cialis 5 mg PO DAILY Trulicity 3 mg/0.5 mL pen injector 3 mg subcut QWEEK Rx Instructions: Taken on Saturday Aimovig Autoinjector 140 mg/mL auto-injector 140 mg subcut QMONTH Rx Instructions: administer as two 70 mg injections at separate sites Referrals / Follow Up: Sonali Lechuga MD [Primary Care Provider] - Disposition Disposition (needs filled in before D/C Order can be placed): Home, Self Care
--- NOTE | 2023-01-08 12:55 | DS.PCM_ITS ---
Providers Date of Admission: 01/06/23 Primary Care Physician: Dr. Sonali Lechuga MD Reason For Visit: SMALL BOWEL OBSTRUCTION Diagnosis Discharge Diagnosis (1) SBO (small bowel obstruction): Status: Acute Code(s): K56.609 - Unspecified intestinal obstruction, unspecified as to partial versus complete obstruction Plan: This is a 57-year-old male who presents with just under 36 hours of symptoms of acute onset upper abdominal pain and distention. He has now postoperative day 2 from diagnostic laparoscopy with negative findings for internal hernia or mechanical bowel obstruction. Nasogastric tube was removed yesterday after a successful clamp trial and patient has been tolerating liquids. Given this to [facility], will advance to a transitional diet. If he does well with this he may be granted discharged home. Neuro: Discontinue as needed Dilaudid, added as needed acetaminophen, ordered patient's home Neurontin Pulm/CV: Incentive spirometer, as needed antihypertensive FEN/GI: Monitor daily electrolytes, creatinine normalized, advance to transitional diet, follow for tolerance : No current issues Heme/ID: Continue to trend CBC, leukocytosis normalized today?and patient remains afebrile without signs of infection Endo: No current issues Proph: SCDs Dispo: Possible discharge home later today Medications at Discharge Home Medications gabapentin 600 mg tablet 300 mg PO TID neuropathy 11/07/18 pravastatin 80 mg tablet 80 mg PO DAILY Cholesterol 11/07/18 verapamil 240 mg 24 hr capsule,extended release 480 mg PO QHS BP 11/07/18 Cialis 5 mg PO DAILY ed 05/03/19 ergocalciferol (vitamin D2) 1,250 mcg (50,000 unit) capsule 1,250 mcg PO QWEEK supplement 01/12/21 dulaglutide 3 mg/0.5 mL subcutaneous pen injector (Trulicity) 3 mg subcut QWEEK weight 01/06/23 erenumab-aooe 140 mg/mL subcutaneous auto-injector (Aimovig Autoinjector) 140 mg subcut QMONTH migraine 01/06/23 oxycodone 5 mg tablet 5 mg PO Q6H PRN pain 3 days #10 tabs 01/08/23 Hospital Course Operations - (Diagnostic laparoscopy 01/06/2023) Summary of Care Provided Hospital Course: Patient is a 57-year-old male who presented to [facility] ER evening of 01/05/2023. Ultimately his emergency room work-up was concerning for small bowel obstruction which radiology stated was probably secondary to a internal hernia. Patient was counseled that he did not meet usual risk factors for this diagnosis in the absence of prior abdominal surgery, but given evidence of some small bowel edema and mesenteric swirl, I did recommend we proceed emergently for diagnostic laparoscopy to best mitigate his risk for catastrophic bowel loss. Intraoperatively I did not find any cause for a bowel obstruction and in fact found dilated proximal bowel that decompressed spontaneously into the distal bowel without difficulty. Furthermore, I did not find any evidence of malperfusion. With this negative result patient was returned to the [facility] where he was kept under low intermittent wall suction with his nasogastric tube and maintained with IV fluid support. Laboratories were trended as he initially had evidence of a leukocytosis and some acute kidney injury. Both of these resolved this morning by postoperative day 2 and Mr. Leonard reported tolerance of a liquid diet. Therefore he was promoted to a transitional diet and tolerated this well. Given this clinical progress and reports of ongoing flatus with a small bowel movement, he was granted discharged home. Instructions were provided for outpatient follow-up. Physical Exam Const alert, oriented x3 and no apparent distress Resp normal respiratory effort GI GI Narrative: Mild ecchymoses about several of port sites are consistent with subcutaneous hematomas (stable over serial exams) Weight / BMI Weight Weight: 300 lb 14.896 oz Body Mass Index (BMI) 36.6 ABG / Lab / Microbiology Data 01/08/23 05:42 01/08/23 05:42 Laboratory: Laboratory Results - last 24 hr 01/06/23 00:03: Diff Path Review Reviewed 01/07/23 05:55: Diff Path Review Reviewed 01/08/23 05:42: WBC 9.5, RBC 5.63, Hgb 15.4, Hct 48.2, MCV 85.6, MCH 27.4, MCHC 32.0, RDW Std Deviation 47.2 H, RDW Coeff of Lisa 15.1 H, Plt Count 218, MPV 9.7, Immature Gran % (Auto) 0.500, Neut % (Auto) 66.2, Lymph % (Auto) 21.0, Dane % (Auto) 9.6, Eos % (Auto) 2.4, Baso % (Auto) 0.3, Absolute Neuts (auto) 6.3, Absolute Lymphs (auto) 2.00, Nucleated RBC % 0, Sodium 140, Potassium 4.1, Chloride 110 H, Carbon Dioxide 27.0, Anion Gap 3 L, BUN 16, Creatinine 1.06, Estim Creat Clear Calc 92.12, Est GFR (MDRD) Af Amer 92, Est GFR (MDRD) Non-Af 76, BUN/Creatinine Ratio 15.1, Glucose 90, Calcium 7.9 L, Phosphorus 2.5, Magnesium 2.0 Meaningful Use Info Meaningful Use Diagnoses (Choose all that apply): None applicable Discharge Plan Admission Admit Date/Time: 01/06/23 05:42 Primary Reason for Your Visit: Small bowel obstruction Attending Provider: Charles Ramirez Primary Care Provider: Sonali Lechuga Discharge Orders/Prescriptions Prescriptions: New oxycodone 5 mg tablet 5 mg PO Q6H PRN (Reason: pain) 3 Days Qty: 10 0RF Continued verapamil 240 mg capsule,ext rel. pellets 24 hr 480 mg PO QHS pravastatin 80 mg tablet 80 mg PO DAILY gabapentin 600 mg tablet 300 mg PO TID ergocalciferol (vitamin D2) 1,250 mcg (50,000 unit) capsule 1,250 mcg PO QWEEK Cialis 5 mg PO DAILY Trulicity 3 mg/0.5 mL pen injector 3 mg subcut QWEEK Rx Instructions: Taken on Saturday Aimovig Autoinjector 140 mg/mL auto-injector 140 mg subcut QMONTH Rx Instructions: administer as two 70 mg injections at separate sites Referrals / Follow Up: Sonali Lechuga MD [Primary Care Provider] - Disposition Disposition (needs filled in before D/C Order can be placed): Home, Self Care Charges/Coding Visit Charges Inpatient E&M: 04897 Disch Hosp
[2023-01-08 14:05] VITALS: BP 142/81; PULSE 90; RESP 18; TEMP 37; O2SAT 94
--- NOTE | 2023-01-08 14:17 | PHA.DC.MC.R ---
Pharmacy [facility] Pharmacy Service has performed discharge medication reconciliation and counseling for this patient. 1. OXYCODONE 5MG PO Q6H PRN PAIN The patient's discharge medication list was reviewed for discrepancies and discrepancies were resolved. The patient was counseled on the following discharge medications and changes in medications for homegoing were reviewed. The Reason for Use, instructions for use, and potential side effects were reviewed for all new medications. The patient's questions regarding all of their medications were answered. The patient was able to verbally demonstrate an understanding of their discharge medications. Patient counseled by pharmacy technician instructorJose Carlos. Medications at Discharge Home Medications gabapentin 600 mg tablet 300 mg PO TID neuropathy 11/07/18 pravastatin 80 mg tablet 80 mg PO DAILY Cholesterol 11/07/18 verapamil 240 mg 24 hr capsule,extended release 480 mg PO QHS BP 11/07/18 Cialis 5 mg PO DAILY ed 05/03/19 ergocalciferol (vitamin D2) 1,250 mcg (50,000 unit) capsule 1,250 mcg PO QWEEK supplement 01/12/21 dulaglutide 3 mg/0.5 mL subcutaneous pen injector (Trulicity) 3 mg subcut QWEEK weight 01/06/23 erenumab-aooe 140 mg/mL subcutaneous auto-injector (Aimovig Autoinjector) 140 mg subcut QMONTH migraine 01/06/23 oxycodone 5 mg tablet 5 mg PO Q6H PRN pain 3 days #10 tabs 01/08/23
== END 2023-01-08 14:57 | disposition home or self-care (01) | DRG 345 ==
LOC: ED 01-06 03:02 → SDC 01-06 03:09 → AC 01-06 03:12 → SDC 01-06 03:16 → MS3 01-06 03:25
PROVIDERS: Admitting Provider Surgery; Emergency Provider Emergency Medicine; PCP Internal Medicine; Referring Provider Surgery; Visit Provider Surgery
PROC: 0DJD4ZZ Inspection of Lower Intestinal Tract, Percutaneous Endoscopic Approach (ICD-10-PCS; CPT 49320; principal; 2023-01-06 03:30)
DX: K56.609 Unspecified intestinal obstruction, unspecified as to partial versus complete obstruction (principal); N17.9 Acute kidney failure, unspecified; E78.00 Pure hypercholesterolemia, unspecified; I10 Essential (primary) hypertension; M54.30 Sciatica, unspecified side; S30.1XXA Contusion of abdominal wall, initial encounter; E86.0 Dehydration; R59.0 Localized enlarged lymph nodes; Z79.899 Other long term (current) drug therapy; Z91.199 Patient's noncompliance with other medical treatment and regimen due to unspecified reason
CPT/HCPCS: 36415; 74018; 74177; 80048; 80076; 83605; 83690; 83735; 84100; 85025; 94668; 97802; 99252; 99285; J7030; J7040; Q9967; A4216; G0463; J2405

== ENCOUNTER → 2023-01-16 | Outpatient (CLI) | payer OTHER, SELFPAY ==
--- NOTE | 2023-01-16 08:01 | VDLE_ITS ---
Reason For Study: RLE SWELLING RIGHT LEFT CFV is compressible, spontaneous, phasic, GSV is normal. competent and demonstrates normal CFV is compressible, spontaneous, phasic, augmentation. competent, and demonstrates normal Procedure augmentation. This is a venous duplex using B-mode, color FV is compressible, spontaneous, phasic, flow and spectral Doppler. competent and demonstrates normal Exam performed in department. augmentation. A preliminary report was called and/or faxed POP V is compressible, spontaneous, phasic, to Dr. Lechuga @ 8:35 am @ [phone]. competent and demonstrates normal augmentation. T/P Trunk is compressible. PTV is compressible. LT PerV is compressible. VL/Venous Duplex US, Unilateral Interpretation Summary Deep veins of the left lower extremity are patent and compressible segmentally. There is no evidence of left lower extremity deep vein thrombosis. Valvular competence appears intac t within the proximal deep venous system on the left . The left great saphenous vein appears patent a nd compressible segmentally. The right common femoral vein is patent and compressible . Ordering Physician: Sonali Lechuga Referring Physician: Sonali Lechuga Performed By: Cesia Pittman, KATIE, RVT
== END | disposition home or self-care (01) ==
LOC: CVS 07:59
PROVIDERS: PCP Internal Medicine; Referring Provider Internal Medicine; Visit Provider Internal Medicine
DX: M79.89 Other specified soft tissue disorders (principal)
CPT/HCPCS: 93971

== ENCOUNTER 2023-07-20 23:10 | Inpatient (IN) | payer OTHER, SELFPAY ==
[2023-07-20 23:11] VITALS: BP 141/92; PULSE 84; RESP 16; TEMP 36.4; O2SAT 100; BMI 35.9
[2023-07-20 23:57] LABS: Absolute Lymphocyte Count 1.36 X10^3/uL (0.83-4.51); Absolute Neutrophil Count 10.3 X10^3/uL (2.0-7.7); Basophil# 0.03 X10^3/uL; Basophil% 0.2 % (0-1); Eosinophil# 0.09 X10^3/uL; Eosinophils% 0.7 % (0-5); Lymphocyte # 1.36 X10^3/ul (0.83-4.51); Lymphocyte % 10.6 % (19-41); Mean Corp Hgb Conc 32.3 g/dL (32-36); Mean Corpuscular Hgb 27.3 pg (27.0-32.0); Mean Corpuscular Volume 84.4 fL (80-94); Monocyte# 1.01 X10^3/uL; Monocyte% 7.9 % (0-10); NRBC Flagged by Analyzer 0 % (0-5); Neutrophil # 10.28 X10^3/uL (2.7-7.7); Neutrophil % 80.4 % (47-70); Platelet Count 284 K/mm3 (150-450); RBC Distribution Width CV 13.8 % (11.6-14.6); RBC Distribution Width SD 41.3 fl (35.1-43.9); Red Blood Count 6.97 M/mm3 (4.6-6.2); White Blood Count 12.8 K/mm3 (4.4-11.0)
--- NOTE | 2023-07-21 00:11 | CT_ITS ---
STUDY: CT ABDOMEN AND PELVIS WITH CONTRAST REASON FOR EXAM: Male, 58 years old. Abdominal pain RADIATION DOSAGE (If Supplied By Facility): CTDIvol = ( 20.4 ) mGy, DLP = ( 1355.41 ) mGycm TECHNIQUE: IV 100mL Isovue-370 was administered. Transaxial images were obtained from the dome of the diaphragm to the symphysis pubis in the portal venous phase. Multiplanar coronal and sagittal images were reformatted. Individualized Dose Optimization Techniques Were Used For This CT. COMPARISON: 01/06/2023 FINDINGS: LOWER CHEST: Lung bases are clear. No cardiomegaly or pericardial effusion. LIVER: The liver is normal in size, shape, and attenuation. No focal mass. GALLBLADDER AND BILIARY TREE: The gallbladder is normally distended. No gallstones. No gallbladder wall thickening or edema. No pericholecystic fluid. No intra- or extrahepatic biliary ductal dilation. PANCREAS: No focal cystic or solid mass. SPLEEN: Normal size without focal cystic or solid mass. ADRENAL GLANDS: No nodules. KIDNEYS AND URETERS: Normal renal size and position, with symmetric enhancement. No hydronephrosis or nephrolithiasis. PERITONEUM: No ascites or free air. No other fluid collection. BOWEL: Multiple mildly dilated loops of small bowel present throughout the central abdomen. These gradually taper to normal caliber in the right hemiabdomen with no discrete point of transition. There is a focal segment of small bowel in the central abdomen exhibiting submucosal edema as seen on coronal images 56-63 and axial images 79-82. Stomach unremarkable. Scattered colonic diverticula without evidence of diverticulitis. Normal appendix. LYMPH NODES: No enlarged mesenteric or retroperitoneal lymph nodes. VESSELS: Aorta is non-dilated. URINARY BLADDER: Unremarkable. REPRODUCTIVE ORGANS: No pelvic masses. ABDOMINAL WALL: No discrete abdominal or pelvic wall hernia. BONES: No acute or suspicious osseous abnormalities. CT/Abdomen/Pelvis W IV Cont ONLY IMPRESSION: * There is short segment enteritis involving the distal jejunum/proximal ileum as described for which infectious inflammatory etiologies are considered. There is a separate loop of distal ileum which may be adherent to this inflamed portion of small bowel, having a similar morphology as on the prior exam from 01/06/2023. The small bowel dilatation in this case is favored to represent an ileus given the lack of transition point. * Scattered colonic diverticula without evidence of diverticulosis. Electronically Signed: Constantino Gomes MD at 1:19 EST ,
[2023-07-21 00:21] LABS: Hematocrit 58.8 % (40-54)
[2023-07-21 00:23] LABS: Differential Indicated SCAN CRITERIA MET
[2023-07-21 00:25] LABS: AST(SGOT) 15 U/L (15-37); Alanine Aminotransfer ALT/SGPT 29 U/L (16-61); Alkaline Phosphatase 107 U/L (45-117); Anion Gap 1 (5-15); BUN 17 mg/dL (7-18); Calcium,Total 9.4 mg/dL (8.5-10.1); Chloride 105 mmol/L (98-107); Creatinine, Serum 1.21 mg/dL (0.70-1.30); EST Glomerular Filtration Rate 65 mL/min (>60); Est Glom Filt Rate - Afr Amer 79 mL/min (>60); Estimated Creatinine Clearance 96.97 ml/min; Globulin 4.1 g/dL (2.2-4.2); Glucose 119 mg/dL (74-106); Lipase 48 U/L (13-75); Potassium 4.4 mmol/L (3.5-5.1); Protein, Total 8.1 g/dL (6.4-8.2); Sodium Level 137 mmol/L (136-145)
--- NOTE | 2023-07-21 00:28 | ED.VIS.GI ---
HPI HPI - GI History of Present Illness Chief Complaint: Abd Pain Narrative Narrative: 58-year-old male presenting with abdominal pain. He states it started earlier this afternoon. Last meal was about 130 in pain started about 5. He describes it as aching/pressure across the upper abdomen from right to left. At times it feels like it is cramping. Patient states that 6 other times it feels like it is going up into his throat like he ate too much food. Patient denies nausea or vomiting. He states he is not having chest pain but he does have shortness of breath to some degree with the abdominal pain. No fevers or chills. No constipation or diarrhea. Patient states he has a history of small bowel obstruction in the past although he had no surgical history prior to this. He states he saw Dr. Ramirez, had an NG tube. He states that he had exploratory laparotomy and he states that everything was resolved by the time he had surgery. Apparently this was due to internal hernia concern. Patient has not had any problems since then. [facility] Medical History Cluster headaches Degeneration of intervertebral disc of lumbosacral region First degree AV block Hemorrhoids Hypercholesterolemia Hypertension Male erectile dysfunction Obesity Onychomycosis Peripheral neuropathy Sleep apnea Spasm of back muscles Vitamin D deficiency Home Medications pravastatin 80 mg tablet 80 mg PO DAILY Cholesterol 11/07/18 [History Last Taken 01/05/23 08:00] verapamil 240 mg 24 hr capsule,extended release 240 mg PO QHS BP 11/07/18 [History Last Taken Unknown] Cialis 5 mg PO DAILY ed 05/03/19 [History Last Taken Unknown] ergocalciferol (vitamin D2) 1,250 mcg (50,000 unit) capsule 1,250 mcg PO QWEEK supplement 01/12/21 [History Last Taken 01/02/23] dulaglutide 3 mg/0.5 mL subcutaneous pen injector (Trulicity) 3 mg subcut QWEEK weight 01/06/23 [History Last Taken Unknown] erenumab-aooe 140 mg/mL subcutaneous auto-injector (Aimovig Autoinjector) 140 mg subcut QMONTH migraine 01/06/23 [History Last Taken 12/24/22] gabapentin 100 mg capsule 200 mg PO Q8H pain 07/20/23 [History Last Taken Unknown] rosuvastatin 40 mg tablet 40 mg PO QHS 07/20/23 [History Last Taken Unknown] sumatriptan succinate 6 mg/0.5 mL subcutaneous solution (Imitrex) 6 mg subcut BID PRN migraine headache 07/20/23 [History Last Taken Unknown] tadalafil 5 mg tablet 5 mg PO DAILY erectal dysfunction 07/20/23 [History Last Taken Unknown] Allergy/AdvReac Type Severity Reaction Status Date / Time divalproex sodium Allergy Intermediate leg Verified 07/20/23 23:13 [From Depakote] swelling Family History Grandmother Cancer uterine/ovarian Mother Diabetes Hypercholesterolemia Grandfather Heart disease Father Cancer multiple myeloma Surgical History excision fatty cysts on back and arms H/O basal cell carcinoma excision History of arthroscopy of shoulder History of back surgery History of bilateral inguinal hernia repair History of vasectomy history repair left index finger Social History Smoking Status: Never smoker alcohol intake: current alcohol intake frequency: a few times a month substance use type: does not use what type of physical activity do you participate in: walking ROS ROS ED Constitutional Constitutional ED: Denies chills, fever(s) or sweats Eyes Eyes: Denies blurry vision or change in vision ENT ENT ED: Denies ear pain or sore throat Cardiovascular Cardiovascular: Denies chest pain, palpitations or racing heartbeat Respiratory/Chest Respiratory/Chest: Denies cough, dyspnea or sputum Gastrointestinal Gastrointestinal: Reports abdominal pain; Denies constipation, diarrhea, nausea or vomiting Genitourinary Genitourinary ED: Denies dysuria, hematuria or urinary frequency Musculoskeletal Musculoskeletal: Denies arthralgias, myalgias or neck pain Integumentary Denies abscess, Abrasions or rash Neurologic Neurologic: Denies headache(s), paresthesias or weakness Psychiatric Psychiatric: Denies anxiety, depression, suicidal ideation or suicidal thoughts Endocrine Endocrinology: Denies polydipsia or polyuria EXAM Physical Exam Const Vital Signs: 07/20/23 23:11 07/21/23 01:35 Temperature 97.6 F L Temperature Source Temporal Pulse Rate 84 88 Respiratory Rate 16 12 Blood Pressure 141/92 H 124/73 H Blood Pressure Mean 108 90 Pulse Ox 100 98 Oxygen Delivery Method Room Air Room Air Positive well nourished General Appearance ED: NAD; Negative for pallor HEENT Reports moist mucous membranes normocephalic and atraumatic Eyes PERRL and EOMs intact bilaterally Resp normal respiratory effort Cardio regular rate and regular rhythm GI Palpation: tender LUQ and RUQ Neuro CN's II-XII intact bilaterally Sensorium / Orientation: alert Psych mental status grossly normal Skin General Skin Exam: Negative for jaundice or pallor MDM MDM MDM Narrative Medical decision making narrative: Patient presenting with abdominal pain. Differential includes ACS, pneumonia, GERD, gastritis, colitis, diverticulitis, cholecystitis, choledocholithiasis, pancreatitis, bowel obstruction. Patient offered analgesia but declined. CBC was obtained to assess white blood cell count, hemoglobin, platelets. CMP to assess liver function, renal function, electrolytes, glucose. Lipase to assess for pancreatitis. CBC shows mild leukocytosis of 12.8. Hemoglobin 19.0 and therefore hemoconcentrated. He has had this in the past. Platelet count normal at 284. Renal function and electrolytes within normal limits. LFTs are normal. Lipase is normal. Will obtain CT of the abdomen pelvis with IV contrast to rule out obstruction. CT of the abdomen pelvis does not show ankush obstruction. There is some concern for inflammation as well as similar findings as previous CT which did show concern for internal hernia. I spoke with general surgery (Kirill) who will admit the patient for observation. Patient was given IV fluids. Admitted in stable condition. Impression: 1. Abdominal pain Lab Data Attestation: I reviewed the patient's lab results. Labs: Laboratory Results - last 24 hr 07/20/23 23:39 WBC 12.8 H RBC 6.97 H Hgb 19.0 H* Hct 58.8 H MCV 84.4 MCH 27.3 MCHC 32.3 RDW Std Deviation 41.3 RDW Coeff of Lisa 13.8 Plt Count 284 MPV 10.0 Immature Gran % (Auto) 0.200 Neut % (Auto) 80.4 H Lymph % (Auto) 10.6 L Rogers % (Auto) 7.9 Eos % (Auto) 0.7 Baso % (Auto) 0.2 Absolute Neuts (auto) 10.3 H Absolute Lymphs (auto) 1.36 Nucleated RBC % 0 Toxic Granulation 2+ Sodium 137 Potassium 4.4 Chloride 105 Carbon Dioxide 31.0 Anion Gap 1 L BUN 17 Creatinine 1.21 Estim Creat Clear Calc 96.97 Est GFR (MDRD) Af Amer 79 Est GFR (MDRD) Non-Af 65 BUN/Creatinine Ratio 14.0 Glucose 119 H Calcium 9.4 Total Bilirubin 1.00 AST 15 ALT 29 Alkaline Phosphatase 107 Troponin I High Sens 4 Total Protein 8.1 Albumin 4.0 Globulin 4.1 Albumin/Globulin Ratio 1.0 Lipase 48 Radiography Diagnostic Testing: Clinical Impression(s) from Imaging Studies Abdomen/Pelvis CT 07/21/23 00:11 IMPRESSION: * There is short segment enteritis involving the distal jejunum/proximal ileum as described for which infectious inflammatory etiologies are considered. There is a separate loop of distal ileum which may be adherent to this inflamed portion of small bowel, having a similar morphology as on the prior exam from 01/06/2023. The small bowel dilatation in this case is favored to represent an ileus given the lack of transition point. * Scattered colonic diverticula without evidence of diverticulosis. Electronically Signed: Constantino Gomes MD at 1:19 EST Reading Location ID and State: [facility] / ID Tel , Service support , Discharge Plan Triage Chief Complaint: Abd Pain ED Provider: Vicente Olson Dx/Rx/DC Orders Primary Care Provider: Sonali Lechuga
[2023-07-21 00:33] LABS: Troponin-I HS 4 pg/mL (3.0-78.0)
[2023-07-21] MEDS: Ondansetron 4 MG/2 ML Vial IV (01:30)
[2023-07-21] MEDS: Morphine 4 MG/ML Syringe IV (01:30)
[2023-07-21 01:35] VITALS: BP 124/73; PULSE 88; RESP 12; O2SAT 98
[2023-07-21 01:43] LABS: Toxic Granulation 2+
[2023-07-21 03:04] VITALS: BP 121/77; PULSE 84; RESP 16; TEMP 37.1; O2SAT 93
--- NOTE | 2023-07-21 03:10 | PCM.HP.STD ---
HPI - General General Date of Admission: 07/21/23 HPI Narrative NATALIA MARTINEZ, is a 58 M who presents with abdominal pain. The patient reports the pain is epigastric. He reports no nausea or vomiting. He says the pain started around 530 this afternoon. He does not describe any pain on palpation. He says the similar thing happened back in December. He had surgery at that time which did not show any apparent cause of bowel obstruction. [facility] Medical History Cluster headaches Degeneration of intervertebral disc of lumbosacral region First degree AV block Hemorrhoids Hypercholesterolemia Hypertension Male erectile dysfunction Obesity Onychomycosis Peripheral neuropathy Sleep apnea Spasm of back muscles Vitamin D deficiency Home Medications pravastatin 80 mg tablet 80 mg PO DAILY Cholesterol 11/07/18 [History Last Taken 01/05/23 08:00] verapamil 240 mg 24 hr capsule,extended release 240 mg PO QHS BP 11/07/18 [History Last Taken Unknown] Cialis 5 mg PO DAILY ed 05/03/19 [History Last Taken Unknown] ergocalciferol (vitamin D2) 1,250 mcg (50,000 unit) capsule 1,250 mcg PO QWEEK supplement 01/12/21 [History Last Taken 01/02/23] dulaglutide 3 mg/0.5 mL subcutaneous pen injector (Trulicity) 3 mg subcut QWEEK weight 01/06/23 [History Last Taken Unknown] erenumab-aooe 140 mg/mL subcutaneous auto-injector (Aimovig Autoinjector) 140 mg subcut QMONTH migraine 01/06/23 [History Last Taken 12/24/22] gabapentin 100 mg capsule 200 mg PO Q8H 07/20/23 [History Last Taken Unknown] rosuvastatin 40 mg tablet 40 mg PO QHS 07/20/23 [History Last Taken Unknown] sumatriptan succinate 6 mg/0.5 mL subcutaneous solution (Imitrex) 6 mg subcut BID PRN migraine headache 07/20/23 [History Last Taken Unknown] tadalafil 5 mg tablet 5 mg PO DAILY 07/20/23 [History Last Taken Unknown] Allergy/AdvReac Type Severity Reaction Status Date / Time divalproex sodium Allergy Intermediate leg Verified 07/20/23 23:13 [From Depakote] swelling Family History Grandmother Cancer uterine/ovarian Mother Diabetes Hypercholesterolemia Grandfather Heart disease Father Cancer multiple myeloma Surgical History excision fatty cysts on back and arms H/O basal cell carcinoma excision History of arthroscopy of shoulder History of back surgery History of bilateral inguinal hernia repair History of vasectomy history repair left index finger Social History Smoking Status: Never smoker alcohol intake: current alcohol intake frequency: a few times a month substance use type: does not use what type of physical activity do you participate in: walking ROS Constitutional Constitutional: Denies anorexia, chills, fatigue or fever(s) Eyes Eyes: Denies blurry vision ENT HEENT: Denies abnormal hearing Cardiovascular Cardiovascular: Denies chest pain Respiratory/Chest Respiratory/Chest: Denies cough or dyspnea Gastrointestinal Gastrointestinal: Reports abdominal pain; Denies constipation, diarrhea, nausea or vomiting Genitourinary Genitourinary: Denies change in urinary stream Musculoskeletal Musculoskeletal: Denies abnormal gait Integumentary Integumentary: Denies jaundice Neurologic Neurologic: Reports headache(s); Denies abnormal gait Endocrine Endocrinology: Denies flushing Hematologic/Lymphatic Hematologic/Lymphatic: Denies easy bleeding Vital Signs Vital Signs Vital Signs: 07/20/23 23:11 07/21/23 01:35 07/21/23 03:04 Temperature 97.6 F L 98.7 F Temperature Source Temporal Pulse Rate 84 88 84 Respiratory Rate 16 12 16 Blood Pressure 141/92 H 124/73 H 121/77 H Blood Pressure Mean 108 90 91 Pulse Ox 100 98 93 Oxygen Delivery Method Room Air Room Air Weight Weight: 295 lb Body Mass Index (BMI) 35.9 Physical Exam Const oriented x3 and no apparent distress Resp normal respiratory effort Cardio regular rate and regular rhythm GI normal to inspection, nondistended, normoactive bowel sounds Extremity normal to inspection Results Lab / Micro Data 07/20/23 23:39 07/20/23 23:39 Labs: Laboratory Results - last 24 hr 07/20/23 23:39: WBC 12.8 H, RBC 6.97 H, Hgb 19.0 H*, Hct 58.8 H, MCV 84.4, MCH 27.3, MCHC 32.3, RDW Std Deviation 41.3, RDW Coeff of Lisa 13.8, Plt Count 284, MPV 10.0, Immature Gran % (Auto) 0.200, Neut % (Auto) 80.4 H, Lymph % (Auto) 10.6 L, [place] % (Auto) 7.9, Eos % (Auto) 0.7, Baso % (Auto) 0.2, Absolute Neuts (auto) 10.3 H, Absolute Lymphs (auto) 1.36, Nucleated RBC % 0, Toxic Granulation 2+, Sodium 137, Potassium 4.4, Chloride 105, Carbon Dioxide 31.0, Anion Gap 1 L, BUN 17, Creatinine 1.21, Estim Creat Clear Calc 96.97, Est GFR (MDRD) Af Amer 79, Est GFR (MDRD) Non-Af 65, BUN/Creatinine Ratio 14.0, Glucose 119 H, Calcium 9.4, Total Bilirubin 1.00, AST 15, ALT 29, Alkaline Phosphatase 107, Troponin I High Sens 4, Total Protein 8.1, Albumin 4.0, Globulin 4.1, Albumin/Globulin Ratio 1.0, Lipase 48 Imaging Radiology Impression Abdomen/Pelvis CT 07/21/23 00:11 IMPRESSION: * There is short segment enteritis involving the distal jejunum/proximal ileum as described for which infectious inflammatory etiologies are considered. There is a separate loop of distal ileum which may be adherent to this inflamed portion of small bowel, having a similar morphology as on the prior exam from 01/06/2023. The small bowel dilatation in this case is favored to represent an ileus given the lack of transition point. * Scattered colonic diverticula without evidence of diverticulosis. Electronically Signed: Constantino Gomes MD at 1:19 EST , Assessment & Plan Assessment/Plan (1) Gastroenteritis: PLAN: Patient is here with epigastric pain that started this afternoon. He had similar pain in December and came into the emergency room had a very similar CAT scan at that time. The patient had a loop of dilated small bowel and went to surgery for laparoscopy. Laparoscopy did not reveal any apparent cause of obstruction and the following day he was feeling better and went home. The patient is having the same symptoms. He denies nausea or vomiting or fevers or chills but he is having pain. There is no pain to palpation only tenderness that does not get worse with palpation. I reviewed the CT scan and it appears that he has distended stomach as well as a small loop of distended small bowel. There is no transition zone and there is no swirling of the mesentery. The patient has a very dilated stomach full of fluid and had an NG during his last visit but he would not like an NG at this time as he says he had a sinus infection last time. Patient is also on Trulicity which may be causing delayed gastric emptying and that may be why his stomach appears dilated. I believe the patient may have gastroenteritis as his loop of small bowel does not appear to be obstructive in nature. There is no dilation of bowel proximal or distal to this. I will admit him and start IV hydration and observe and repeat KUB in the morning. Patient is in agreement with the plan. The patient is also having a cluster headache so I will give him subcutaneous Imitrex that he takes at home. Sourav Hoover MD Pager: [facility] [address] [place] [address], [address] [place] [address] Office:
[2023-07-21] MEDS: 0.9% Normal Saline (1000mL) 1,000 ML 999 ML IV (03:14)
[2023-07-21] MEDS: SUMAtriptan 6 MG/0.5 ML Vial SC ×2 (03:15→17:11)
[2023-07-21 04:31] VITALS: BMI 36.3
[2023-07-21] MEDS: 0.9% Normal Saline (1000mL) 1,000 ML 125 ML IV ×3 (04:44→17:11)
[2023-07-21 04:48] VITALS: BP 123/81; PULSE 76; RESP 18; TEMP 36.4; O2SAT 94
[2023-07-21] MEDS: 0.9% Saline Lock 10 ML Syringe IV (05:06)
[2023-07-21] MEDS: Gabapentin 100 MG Capsule 200 MG PO ×3 (05:06→22:36)
--- NOTE | 2023-07-21 05:50 | RAD_ITS ---
STUDY: X-RAY - ABDOMEN/PELVIS REASON FOR EXAM: Male, 58 years old. Abdominal pain and distention TECHNIQUE: 3 AP views COMPARISON: CT scan from earlier today FINDINGS: Normal visualized lung bases. There is an unremarkable bowel gas pattern. There is no demonstrated free abdominal air. Please refer to the CT scan for more detailed description of the intestines. The visualized liver, spleen and kidneys are grossly normal in size and morphology. Contrast noted within the bladder Normal visualized osseous structures. RAD/Abdomen Single View (Portable) IMPRESSION: No abnormal findings Electronically Signed: Donald Lee MD at 9:05 EST ,
[2023-07-21 06:02] LABS: Absolute Lymphocyte Count 1.77 X10^3/uL (0.83-4.51); Absolute Neutrophil Count 9.2 X10^3/uL (2.0-7.7); Basophil# 0.06 X10^3/uL; Basophil% 0.5 % (0-1); Eosinophils% 1.6 % (0-5); Hemoglobin 17.5 g/dL (13.0-16.5); Lymphocyte # 1.77 X10^3/ul (0.83-4.51); Lymphocyte % 14.5 % (19-41); Mean Corp Hgb Conc 32.4 g/dL (32-36); Mean Corpuscular Hgb 27.5 pg (27.0-32.0); Mean Corpuscular Volume 84.8 fL (80-94); Mean Platelet Vol. 10.4 fl (6.2-12.0); Monocyte# 0.95 X10^3/uL; Monocyte% 7.8 % (0-10); NRBC Flagged by Analyzer 0 % (0-5); Neutrophil % 75.2 % (47-70); Platelet Count 281 K/mm3 (150-450); RBC Distribution Width CV 13.5 % (11.6-14.6); RBC Distribution Width SD 41.8 fl (35.1-43.9); Red Blood Count 6.37 M/mm3 (4.6-6.2); White Blood Count 12.2 K/mm3 (4.4-11.0)
[2023-07-21 06:44] LABS: Anion Gap 3 (5-15); BUN 16 mg/dL (7-18); BUN/Creat Ratio 15.1 RATIO (10-20); Calcium,Total 8.3 mg/dL (8.5-10.1); Chloride 106 mmol/L (98-107); Creatinine, Serum 1.06 mg/dL (0.70-1.30); EST Glomerular Filtration Rate 76 mL/min (>60); Est Glom Filt Rate - Afr Amer 92 mL/min (>60); Estimated Creatinine Clearance 111.32 ml/min; Glucose 138 mg/dL (74-106); Potassium 3.8 mmol/L (3.5-5.1); Sodium Level 136 mmol/L (136-145)
[2023-07-21 08:22] VITALS: BP 112/87; PULSE 73; RESP 18; TEMP 36.4; O2SAT 97
[2023-07-21] MEDS: Pantoprazole Sodium 40 MG in 0.9% Normal Saline (100mL MB+) 100 ML 330 MG IV (09:29)
--- NOTE | 2023-07-21 09:52 | PN.SURG_ITS ---
Subjective Subjective Patient says he is not having any pain like he was yesterday. He still feels tight across his abdomen and does not have much of an appetite. He denies any nausea or vomiting or diarrhea. Objective Data Objective Data Vital Signs: Vital Signs Temp Pulse Resp BP Pulse Ox O2 Del Method 97.5 F L 73 18 112/87 H 97 Room Air 07/21/23 08:22 07/21/23 08:22 07/21/23 08:22 07/21/23 08:22 07/21/23 08:22 07/21/23 08:22 Oxygen Delivery Method Room Air Weight: 298 lb 4.567 oz Body Mass Index (BMI) 36.3 Intake & Output: Intake and Output for Last 24 Hours 07/19/23 07/20/23 07/21/23 23:59 23:59 23:59 Intake Total 1618.75 / 1618.75 Balance 1618.75 / 1618.75 Lab / Micro Data 07/21/23 05:06 07/21/23 05:06 Labs: Laboratory Results - last 24 hr 07/20/23 23:39: WBC 12.8 H, RBC 6.97 H, Hgb 19.0 H*, Hct 58.8 H, MCV 84.4, MCH 27.3, MCHC 32.3, RDW Std Deviation 41.3, RDW Coeff of Lisa 13.8, Plt Count 284, MPV 10.0, Immature Gran % (Auto) 0.200, Neut % (Auto) 80.4 H, Lymph % (Auto) 10.6 L, [place] % (Auto) 7.9, Eos % (Auto) 0.7, Baso % (Auto) 0.2, Absolute Neuts (auto) 10.3 H, Absolute Lymphs (auto) 1.36, Nucleated RBC % 0, Diff Path Review May foll, Toxic Granulation 2+, Sodium 137, Potassium 4.4, Chloride 105, Carbon Dioxide 31.0, Anion Gap 1 L, BUN 17, Creatinine 1.21, Estim Creat Clear Calc 96.97, Est GFR (MDRD) Af Amer 79, Est GFR (MDRD) Non-Af 65, BUN/Creatinine Ratio 14.0, Glucose 119 H, Calcium 9.4, Total Bilirubin 1.00, AST 15, ALT 29, Alkaline Phosphatase 107, Troponin I High Sens 4, Total Protein 8.1, Albumin 4.0, Globulin 4.1, Albumin/Globulin Ratio 1.0, Lipase 48 07/21/23 05:06: WBC 12.2 H, RBC 6.37 H, Hgb 17.5 H, Hct 54.0, MCV 84.8, MCH 27.5, MCHC 32.4, RDW Std Deviation 41.8, RDW Coeff of Lisa 13.5, Plt Count 281, MPV 10.4, Immature Gran % (Auto) 0.400, Neut % (Auto) 75.2 H, Lymph % (Auto) 14.5 L, [place] % (Auto) 7.8, Eos % (Auto) 1.6, Baso % (Auto) 0.5, Absolute Neuts (auto) 9.2 H, Absolute Lymphs (auto) 1.77, Nucleated RBC % 0, Sodium 136, Potassium 3.8, Chloride 106, Carbon Dioxide 27.0, Anion Gap 3 L, BUN 16, Creatinine 1.06, Estim Creat Clear Calc 111.32, Est GFR (MDRD) Af Amer 92, Est GFR (MDRD) Non-Af 76, BUN/Creatinine Ratio 15.1, Glucose 138 H, Calcium 8.3 L Radiography Diagnostic Testing: Radiology Impression Abdomen/Pelvis CT 07/21/23 00:11 IMPRESSION: * There is short segment enteritis involving the distal jejunum/proximal ileum as described for which infectious inflammatory etiologies are considered. There is a separate loop of distal ileum which may be adherent to this inflamed portion of small bowel, having a similar morphology as on the prior exam from 01/06/2023. The small bowel dilatation in this case is favored to represent an ileus given the lack of transition point. * Scattered colonic diverticula without evidence of diverticulosis. Electronically Signed: Constantino Gomes MD at 1:19 EST , KUB X-Ray 07/21/23 05:50 IMPRESSION: No abnormal findings Electronically Signed: Donald Lee MD at 9:05 EST , Physical Exam Const oriented x3 and no apparent distress Resp normal respiratory effort GI soft to palpation and non-tender Inspection: Negative for abdominal distention Assessment & Plan Assessment/Plan (1) Gastroenteritis: PLAN: The patient says he is improved since 2 AM when I saw him. I will continue n.p.o. and IV fluids for the day to give his bowel some time to rest and await until he starts feeling hungry. I believe this is likely gastroenteritis and viral. It did not make much sense that a loop of small bowel would only be dilated without any dilation proximal or distal to this with no swirling of the mesentery. I believe his gastric distention is explained by his weight loss medication. Patient is not nauseous or having pain so I do not believe he has anything surgical in nature. Sourav Hoover MD Pager: [facility] [address] [place] [address], [address] [place] [address] Office:
[2023-07-21 14:24] VITALS: BP 123/85; PULSE 69; RESP 16; TEMP 36.7; O2SAT 96
[2023-07-21 22:32] VITALS: BP 134/93; PULSE 86; RESP 18; TEMP 36.9; O2SAT 97
[2023-07-21] MEDS: Acetaminophen 325 MG Tablet 650 MG PO (22:36)
[2023-07-21] MEDS: Verapamil SR 240 MG Tablet PO (22:37)
[2023-07-21] MEDS: Atorvastatin Calcium 80 MG Tablet PO (22:38)
[2023-07-22 01:16] VITALS: BP 143/110; PULSE 113; RESP 20; TEMP 36.6; O2SAT 93
[2023-07-22] MEDS: SUMAtriptan 6 MG/0.5 ML Vial SC (01:42)
[2023-07-22] MEDS: 0.9% Normal Saline (1000mL) 1,000 ML 125 ML IV (01:44)
[2023-07-22 06:50] VITALS: BP 124/88; PULSE 77; RESP 18; TEMP 36.4; O2SAT 95
[2023-07-22] MEDS: Gabapentin 100 MG Capsule 200 MG PO (06:52)
[2023-07-22] MEDS: Acetaminophen 325 MG Tablet 650 MG PO (07:38)
[2023-07-22 07:54] LABS: Absolute Lymphocyte Count 1.57 X10^3/uL (0.83-4.51); Absolute Neutrophil Count 4.9 X10^3/uL (2.0-7.7); Basophil# 0.03 X10^3/uL; Basophil% 0.4 % (0-1); Eosinophil# 0.24 X10^3/uL; Eosinophils% 3.1 % (0-5); Hematocrit 52.3 % (40-54); Hemoglobin 17.1 g/dL (13.0-16.5); Lymphocyte # 1.57 X10^3/ul (0.83-4.51); Lymphocyte % 20.5 % (19-41); Mean Corp Hgb Conc 32.7 g/dL (32-36); Mean Corpuscular Hgb 27.7 pg (27.0-32.0); Mean Corpuscular Volume 84.6 fL (80-94); Mean Platelet Vol. 9.9 fl (6.2-12.0); Monocyte# 0.87 X10^3/uL; Monocyte% 11.4 % (0-10); NRBC Flagged by Analyzer 0 % (0-5); Neutrophil # 4.93 X10^3/uL (2.7-7.7); Neutrophil % 64.3 % (47-70); Platelet Count 237 K/mm3 (150-450); RBC Distribution Width CV 13.4 % (11.6-14.6); RBC Distribution Width SD 41.7 fl (35.1-43.9); Red Blood Count 6.18 M/mm3 (4.6-6.2); White Blood Count 7.7 K/mm3 (4.4-11.0)
[2023-07-22 08:09] LABS: Anion Gap -1 (5-15); BUN 11 mg/dL (7-18); BUN/Creat Ratio 10.7 RATIO (10-20); Calcium,Total 8.5 mg/dL (8.5-10.1); Chloride 112 mmol/L (98-107); Creatinine, Serum 1.03 mg/dL (0.70-1.30); EST Glomerular Filtration Rate 78 mL/min (>60); Est Glom Filt Rate - Afr Amer 95 mL/min (>60); Estimated Creatinine Clearance 114.56 ml/min; Glucose 87 mg/dL (74-106); Potassium 4.5 mmol/L (3.5-5.1); Sodium Level 140 mmol/L (136-145)
--- NOTE | 2023-07-22 08:15 | PN.SURG_ITS ---
Subjective Subjective Patient tolerated clears yesterday. He denies nausea or vomiting. He had a bowel movement this morning. He is not having any abdominal pain. Objective Data Objective Data Vital Signs: Vital Signs Temp Pulse Resp BP Pulse Ox O2 Del Method 97.5 F L 77 18 124/88 H 95 Room Air 07/22/23 06:50 07/22/23 06:50 07/22/23 06:50 07/22/23 06:50 07/22/23 06:50 07/22/23 06:50 Oxygen Delivery Method Room Air Weight: 298 lb 4.567 oz Body Mass Index (BMI) 36.3 Intake & Output: Intake and Output for Last 24 Hours 07/20/23 07/21/23 07/22/23 23:59 23:59 23:59 Intake Total 2649.59 / 2649.59 1000 / 1000 Balance 2649.59 / 2649.59 1000 / 1000 Lab / Micro Data 07/22/23 07:39 07/22/23 07:39 Labs: Laboratory Results - last 24 hr 07/22/23 07:39: WBC 7.7, RBC 6.18, Hgb 17.1 H, Hct 52.3, MCV 84.6, MCH 27.7, MCHC 32.7, RDW Std Deviation 41.7, RDW Coeff of Lisa 13.4, Plt Count 237, MPV 9.9, Immature Gran % (Auto) 0.300, Neut % (Auto) 64.3, Lymph % (Auto) 20.5, [place] % (Auto) 11.4 H, Eos % (Auto) 3.1, Baso % (Auto) 0.4, Absolute Neuts (auto) 4.9, Absolute Lymphs (auto) 1.57, Nucleated RBC % 0, Sodium 140, Potassium 4.5, Chloride 112 H, Carbon Dioxide 29.0, Anion Gap -1 L, BUN 11, Creatinine 1.03, Estim Creat Clear Calc 114.56, Est GFR (MDRD) Af Amer 95, Est GFR (MDRD) Non-Af 78, BUN/Creatinine Ratio 10.7, Glucose 87, Calcium 8.5 Radiography Diagnostic Testing: Radiology Impression KUB X-Ray 07/21/23 05:50 IMPRESSION: No abnormal findings Electronically Signed: Donald Lee MD at 9:05 EST , Physical Exam Const oriented x3 Resp normal respiratory effort Cardio regular rate and regular rhythm GI normal to inspection, nondistended, normoactive bowel sounds Assessment & Plan Assessment/Plan (1) Gastroenteritis: PLAN: Patient seems to be doing well and he is tolerating a clear liquid diet. I will advance him to regular diet and if he tolerates this I would let him go home. WBC returned to normal. Sourav Hoover MD Pager: [facility] [address] [place] [address], [address] [place] [address] Office:
--- NOTE | 2023-07-22 10:27 | PCM.DC.SUM ---
Providers Date of Admission: 07/21/23 Primary Care Physician: Dr. Sonali Lechuga MD Reason For Visit: GASTROENERITIS Diagnosis Discharge Diagnosis (1) Gastroenteritis: Status: Acute Code(s): K52.9 - Noninfective gastroenteritis and colitis, unspecified Medications at Discharge Home Medications pravastatin 80 mg tablet 80 mg PO DAILY Cholesterol 11/07/18 verapamil 240 mg 24 hr capsule,extended release 240 mg PO QHS BP 11/07/18 Cialis 5 mg PO DAILY ed 05/03/19 ergocalciferol (vitamin D2) 1,250 mcg (50,000 unit) capsule 1,250 mcg PO QWEEK supplement 01/12/21 dulaglutide 3 mg/0.5 mL subcutaneous pen injector (Trulicity) 3 mg subcut QWEEK weight 01/06/23 erenumab-aooe 140 mg/mL subcutaneous auto-injector (Aimovig Autoinjector) 140 mg subcut QMONTH migraine 01/06/23 gabapentin 100 mg capsule 200 mg PO Q8H pain 07/20/23 rosuvastatin 40 mg tablet 40 mg PO DAILY cholesterol 07/20/23 sumatriptan succinate 6 mg/0.5 mL subcutaneous solution (Imitrex) 6 mg subcut BID PRN migraine headache 07/20/23 tadalafil 5 mg tablet 5 mg PO DAILY erectal dysfunction 07/20/23 Hospital Course Summary of Care Provided Minutes Spent on Discharge: 25 Hospital Course: Patient is a 58 y/o M who presented with abdominal pain. CT scan of the ab/pel demonstrated enteritis of the distal jejunum/proximal ileum, distal ileum adherent to inflamed portion of small bowel. Small bowel dilatation favored to represent an ileus. Patient was started on bowel rest and observation. A few hours later the patient already noticed an improvement in his symptoms. Patient was then started on clear liquids. Patient had an uncomplicated hospitalization. Upon discharge, patient was passing flatus and a bowel movement the morning of discharge. He denies nausea, vomiting, fever. He denies abdominal pain. He was increased to regular diet and tolerated this well. Patient will be discharged to home. He will not require a follow-up with our office at this time. Weight / BMI Weight Weight: 298 lb 4.567 oz Body Mass Index (BMI) 36.3 ABG / Lab / Microbiology Data 07/22/23 07:39 07/22/23 07:39 Laboratory: Laboratory Results - last 24 hr 07/22/23 07:39: WBC 7.7, RBC 6.18, Hgb 17.1 H, Hct 52.3, MCV 84.6, MCH 27.7, MCHC 32.7, RDW Std Deviation 41.7, RDW Coeff of Lisa 13.4, Plt Count 237, MPV 9.9, Immature Gran % (Auto) 0.300, Neut % (Auto) 64.3, Lymph % (Auto) 20.5, [place] % (Auto) 11.4 H, Eos % (Auto) 3.1, Baso % (Auto) 0.4, Absolute Neuts (auto) 4.9, Absolute Lymphs (auto) 1.57, Nucleated RBC % 0, Sodium 140, Potassium 4.5, Chloride 112 H, Carbon Dioxide 29.0, Anion Gap -1 L, BUN 11, Creatinine 1.03, Estim Creat Clear Calc 114.56, Est GFR (MDRD) Af Amer 95, Est GFR (MDRD) Non-Af 78, BUN/Creatinine Ratio 10.7, Glucose 87, Calcium 8.5 D/C Instructions Discharge Diet: Light diet - advance as tolerated Discharge Activity: Return to Normal Activity and No Restrictions Meaningful Use Info Meaningful Use Diagnoses (Choose all that apply): None applicable Discharge Plan Admission Admit Date/Time: 07/21/23 03:00 Primary Reason for Your Visit: Gastroenteritis; ileus Attending Provider: Sourav Hoover Primary Care Provider: Sonali Lechuga Discharge Orders/Prescriptions Prescriptions: Continued verapamil 240 mg capsule,ext rel. pellets 24 hr 240 mg PO QHS pravastatin 80 mg tablet 80 mg PO DAILY ergocalciferol (vitamin D2) 1,250 mcg (50,000 unit) capsule 1,250 mcg PO QWEEK Cialis 5 mg PO DAILY Trulicity 3 mg/0.5 mL pen injector 3 mg subcut QWEEK Rx Instructions: Taken on Saturday Aimovig Autoinjector 140 mg/mL auto-injector 140 mg subcut QMONTH Rx Instructions: administer as two 70 mg injections at separate sites gabapentin 100 mg capsule 200 mg PO Q8H rosuvastatin 40 mg tablet 40 mg PO DAILY tadalafil 5 mg tablet 5 mg PO DAILY sumatriptan succinate [Imitrex] 6 mg/0.5 mL solution 6 mg subcut BID PRN (Reason: migraine headache) Referrals / Follow Up: Sonali Lechuga MD [Primary Care Provider] - (Within 2 weeks from discharge) Sourav Hoover MD [Med Staff - Active Staff] - (As needed) Disposition Disposition (needs filled in before D/C Order can be placed): Home, Self Care Charges/Coding Visit Charges Inpatient E&M: 73694 Disch Hosp
--- NOTE | 2023-07-22 10:45 | CASEMGMT ---
RN SINDY Face to Face with patient for initial transition planning/care coordination assessment. RN CM introduced self and role at [facility]. Patient sitting in chair, alert and oriented. Patient willing to participate in assessment and is able to answer all questions appropriately. Care providers, pharmacy, and demographics verified. Patient wishes to discharge home, denies need for home health at this time. Patient states he has no further needs or concerns at this time. CM to follow for discharge planning needs that may arise. PCP: Ankush Specialists: none Preferred Pharmacy: [facility] Insurance: Prescription Benefit: yes Living Will/HPOA: none LNOK: Living Arrangements: Patient lives with in a single story home with 1 step to enter. Patient is independent at home. Transportation: self, DME/HHC: Atilio has bipap at home. No previous HHC or SNF. Disposition Plan: Patient to discharge home with family support and follow-up plans in place. Marge CORLEY, RN, CM
--- NOTE | 2023-07-22 10:46 | PHA.DC.MR.R ---
Pharmacy PA Med Reconciliation Pharmacy Service has performed discharge medication reconciliation for this patient. The patient's discharge medication list was reviewed for discrepancies and discrepancies were resolved. Medications at Discharge Home Medications verapamil 240 mg 24 hr capsule,extended release 240 mg PO QHS BP 11/07/18 ergocalciferol (vitamin D2) 1,250 mcg (50,000 unit) capsule 1,250 mcg PO QWEEK supplement 01/12/21 dulaglutide 3 mg/0.5 mL subcutaneous pen injector (Trulicity) 3 mg subcut QWEEK weight 01/06/23 erenumab-aooe 140 mg/mL subcutaneous auto-injector (Aimovig Autoinjector) 140 mg subcut QMONTH migraine 01/06/23 gabapentin 100 mg capsule 200 mg PO Q8H pain 07/20/23 rosuvastatin 40 mg tablet 40 mg PO DAILY cholesterol 07/20/23 sumatriptan succinate 6 mg/0.5 mL subcutaneous solution (Imitrex) 6 mg subcut BID PRN migraine headache 07/20/23 tadalafil 5 mg tablet 5 mg PO DAILY erectal dysfunction 07/20/23
[2023-07-22] MEDS: Pantoprazole Sodium 40 MG in 0.9% Normal Saline (100mL MB+) 100 ML 330 MG IV (11:08)
[2023-07-22 11:18] VITALS: BP 137/70; PULSE 70; RESP 18; TEMP 37; O2SAT 98
[2023-07-23 10:01] LABS: Pathologist Review Reviewed
== END 2023-07-22 12:01 | disposition home or self-care (01) | DRG 392 ==
LOC: ED 07-21 00:47 → MS3 07-21 04:47
PROVIDERS: Admitting Provider Surgery; Emergency Provider Student in an Organized Health Care Education/Training Program; PCP Internal Medicine; Referring Provider Surgery; Visit Provider Surgery
DX: A08.4 Viral intestinal infection, unspecified (principal); K56.7 Ileus, unspecified; I10 Essential (primary) hypertension; E78.00 Pure hypercholesterolemia, unspecified; G44.009 Cluster headache syndrome, unspecified, not intractable; Z79.85 Long-term (current) use of injectable non-insulin antidiabetic drugs; Z79.899 Other long term (current) drug therapy
CPT/HCPCS: 36415; 74018; 74177; 80048; 80053; 83690; 84484; 85025; 93005; 99285; J7030; Q9967; A4216; J2405; J3030

== ENCOUNTER 2023-08-08 10:00 | Outpatient (RCR) | payer OTHER, SELFPAY ==
--- NOTE | 2023-07-03 11:00 | HP.PTEVAL ---
Patient's Visit Information Visit Information Visit Information: NATALIA MARTINEZ is a 58 year old M referred to Physical Therapy by Dr. Soanli Lechuga MD with a diagnosis of LBP with R sciatica. Date of Evaluation: 07/03/23 Physical Therapist: Robert Rucker, PT, ATC Visit Plan Frequency: 1x/Week Duration: 2-3 weeks Plan: Postural edu, REIL, core strengthening ex's, and HEP Subjective Subjective: Pt reports he has been dealing chronically with LBP for over 20 years. Pt reports he was in the [employer] for 22 years, and notes he had to do a lot of lifting during that time which is what started his pain. Pt notes he recently began to experience sciatica in his R LE which has progressively worsened. Pt reports the pain originates in his R mid glute region and extends all the way down to his foot. Pt reports his R LE radiculopathy is intermittent in nature. Pt reports his pain is worse when he is sitting than when he is standing. Pt reports he has sleep difficulty at night secondary to his pain. Pt reports he has some discomfort with walking, but notes sitting is still worse. Pt reports he has been doing piriformis stretches which help a little bit, but the pain is always there. Pt had xrays a little while ago, and plans to get some today. LBP ranges from 2-8/10 at this time. Pain LBP: Pain Intensity (Out of 10): 2 Pain Intensity Range: 8 Objective Objective: Neuro: B LE's are numb from mid weber down. Pt has hyposensitivity on R L4. All other LE sensation is WNL. patellar reflex R= 2/3, L= 1/3 MMT: B LE MMT 5/5 throughout ROM: Pt is minimally limited with extension. All other ranges are WNL Repeated movements: RFIS 10x2 peripheralized sx's into L HS. Doris NE. Prone prop on elbows centralized sx's. REIL 10x2 centralized sx's Balance/Special Test Scores Oswestry Low Back Score: 23 Goals Goal 1:: Decrease LBP x 50% to aid with =sleep Goal Time Frame: 4-6 Weeks Goal 2:: Decrease the frequency and intensity of R LE radiculopathy x 50% to aid with standing tolerance Goal Time Frame: 4-6 Weeks Goal 3:: I with HEP Goal Time Frame: 4-6 Weeks Rehabilitation Potential Physical Therapy Diagnosis: Pt has LBP, R LE sciatica, and difficulty with sleep secondary to L/S disc derangement Rehabilitation Potential: Good Anticipated Interventions Patient/Client Instruction: Educate patient on: Condition and Plan of Care For the Purpose of:: To improve self management Therapeutic Exercise to Include: Strength training, Endurance training, Body mechanics, Postural training, Dynamic Lumbar Stabilization and Miguel Exercises For the Purpose of:: To decrease pain, To increase ROM and To improve muscle performance and motor function Text: Thank you for the opportunity to evaluate your patient. For Medicare and Medicare HMO plans, please review the plan of care and approve it. It will need to be FAXED BACK to us at [phone] for Medicare purposes. For Medicare only, by signing this I certify the plan of care. Please let me know if there are questions or concerns regarding this plan of care. Physician Signature: Date:
--- NOTE | 2023-08-08 10:39 | HP.PTDCSUM_ITS ---
Discharge Summary D/C summary: It has been my pleasure to treat NATALIA MARTINEZ referred by Dr. Sonali Lechuga MD, with the diagnosis of LBP with R sciatica for a total of 3 visit(s). Discharge Date: Please see the following information for a summary of their discharge status. Subjective Subjective: Pt. that he has been doing ok. He denies any pain down the leg currently but did have some pain last week. Pt. states that he did the exercises but cut back on how much he was doing. Pt. reports that sleeping is better this week and also sitting has been fine as well. Pt. states that he feels he is good to continue with his exercises at home at this point and is also working out a few days a week as well. Pain LBP: Pain Intensity (Out of 10): 0 Overall Improvement % Improvement: 60 Objective Objective/Function: Riky has come to 3 sessions of physical therapy focusing on lumbar extension based exercises, core, back, and hip strengthening. Reviewed pt. goals for therapy and he has met most of his goals for therapy. Pt. requested to continue with his exercises at home at this time. He has been d ischarged from physical therapy at this time and is in agreement with this. Goals Goal 1:: Decrease LBP x 50% to aid with =sleep Goal Progress: Goal Met Goal 2:: Decrease the frequency and intensity of R LE radiculopathy x 50% to aid with standing tolerance Goal Progress: Progressing Goal 3:: I with HEP Goal Progress: Goal Met Plan Plan: Pt. discharged from physical therapy at this time. D/C Information d/c sentence: If there are questions or concerns regarding this patient's physical therapy, please feel free to call me at [phone]. Thank you for the referral of this patient. Sincerely, Edilberto Blair Balance/Gait/Functional tests Balance/Special Test Scores Oswestry Low Back Score: 23 Improvement % Improvement: 60
== END 2023-08-08 19:00 | disposition home or self-care (01) ==
LOC: PT 10:00
PROVIDERS: PCP Internal Medicine; Referring Provider Internal Medicine; Visit Provider Internal Medicine
DX: M54.31 Sciatica, right side (principal); M54.50 Low back pain, unspecified
CPT/HCPCS: 97110; 97161

== ENCOUNTER → 2023-08-28 | Outpatient (CLI) | payer OTHER, SELFPAY ==
--- NOTE | 2023-08-28 07:20 | MRI_ITS ---
STUDY: MRI LUMBAR SPINE WITHOUT CONTRAST REASON FOR EXAM: Male, 58 years old. degeneration of intervertebral disc TECHNIQUE: Standardized fat and water weighted pulse sequences were obtained in the sagittal and axial planes. COMPARISON: None FINDINGS: T12-L1: Normal endplates. Normal disc height, hydration and morphology. Normal bilateral facet joints. Normal central canal and bilateral lateral recesses. Normal bilateral intervertebral neural foramina. Normal lumbar lordosis. There is no substantial scoliosis. Normal conus medullaris that terminates at L1 L1-2: Normal endplates. Normal disc height, disc degeneration and normal morphology. Normal bilateral facet joints. Normal central canal and bilateral lateral recesses. Normal bilateral intervertebral neural foramina. L2-3: Normal endplates. Normal disc height, disc degeneration and tiny right foraminal disc protrusion.. Mild facet arthropathy. Normal central canal and bilateral lateral recesses. Minor right neural foraminal encroachment. L3-4: Normal endplates. Normal disc height, hydration and morphology. Facet arthropathy and thickening of ligamenta flava. Normal central canal and bilateral lateral recesses. Mild bilateral neural foraminal encroachment L4-5: Normal endplates. Normal disc height, hydration and minimal annular bulge.. Facet arthropathy. Normal central canal and bilateral lateral recesses. Mild to moderate bilateral neural foraminal encroachment. L5-S1: Normal endplates. Normal disc height, desiccation and mild annular bulge. Facet arthropathy and thickening of ligamenta flava. Normal central canal and bilateral lateral recesses. Mild bilateral neural foraminal encroachment Normal visualized sacral ala. Normal visualized paraspinous soft tissue structures. MRI/Spine Lumbar (Routine) IMPRESSION: No evidence for acute fracture or other significant bone pathology. Mild multilevel spinal stenosis secondary to disc disease and facet arthropathy. Findings as above Electronically Signed: Vincenzo Fajardo MD at 16:25 EDT ,
== END | disposition home or self-care (01) ==
LOC: MRI 07:10
PROVIDERS: PCP Internal Medicine; Referring Provider Internal Medicine; Visit Provider Internal Medicine
DX: M51.37 Other intervertebral disc degeneration, lumbosacral region (principal)
CPT/HCPCS: 72148

== ENCOUNTER → 2023-09-30 | Outpatient (CLI) | payer OTHER, SELFPAY ==
--- NOTE | 2023-09-30 08:00 | RAD_ITS ---
PROCEDURE: SMALL BOWEL SERIES DATE OF EXAMINATION: September 30, 2023. INDICATION: Male, 58 years old. Abdominal pain. History of prior small bowel obstruction and laparoscopic surgery. PHYSICIAN: Huan Arias M.D. FLUOROSCOPY TIME (if supplied): (0:36) minutes/seconds. 9 images were submitted. TECHNIQUE: Radiographic and fluoroscopic images were taken of the small intestine following the ingestion of barium. COMPARISON: None. FINDINGS: A preliminary supine KUB was obtained. There is an unremarkable bowel gas pattern. Fecal material is present throughout the colon. Phleboliths are present within the pelvis. The lung bases are unremarkable. The osseous structures are normal. The patient orally ingested approximately 12 ounces of thin barium Normal visualized fundus, body, and antrum of the stomach. Normal duodenal bulb, C-loop, and proximal jejunum. Normal visualized mucosal folds of the jejunum and ileum. There are no demonstrated dilatations, strictures, or masses of the small intestine. There is no mass displacement of the loops of small intestine. There is a normal motor pattern with barium reaching the colon within approximately 30 minutes. Spot films under fluoroscopic observation demonstrated a normal terminal ileum and ileocecal valve. RAD/Small Bowel Series Only IMPRESSION: Normal small bowel series. Electronically Signed: Huan Arias MD at 14:19 EDT ,
== END | disposition home or self-care (01) ==
LOC: RAD 07:47
PROVIDERS: PCP Internal Medicine; Referring Provider Internal Medicine Gastroenterology; Visit Provider Internal Medicine Gastroenterology
DX: R10.9 Unspecified abdominal pain (principal)
CPT/HCPCS: 74250

== ENCOUNTER → 2023-10-23 | Outpatient (CLI) | payer OTHER, SELFPAY ==
--- NOTE | 2023-10-23 14:32 | NEURO ---
NCS and/or EMG Patient Report Ordering Doctor: Sonali Lechuga DATE OF SERVICE: 10/23/23 Aravind has complaints of numbness and tingling in both legs. He also reports worsening right-sided lower back pain radiating to the right foot. Electrodiagnostic findings: Right peroneal motor nerve demonstrates normal distal latency, with reduced amplitude and conduction velocity. Right tibial motor response could not be obtained. Prolonged right sural latency. Normal right superficial peroneal response. Prolonged H?reflex bilaterally. Prolonged right peroneal F?wave. Needle EMG was performed in the right lower limb. 1+ fibrillations are noted in the right peroneus longus, right tibialis anterior and right lower lumbar paraspinals. Motor unit action potentials are of normal amplitude and duration. Electrodiagnostic impression this is an abnormal study in the right lower limb 1. Electrodiagnostic findings suggestive of an acute right-sided L5 radiculopathy. Consider correlation with lumbar spine imaging. 2. Electrodiagnostic findings demonstrate neuropathy of the right peroneal, right tibial and right sural nerves. This is likely suggestive of a larger peripheral polyneuropathy. Would consider correlation with the left lower limb to further evaluate this. Multi Select Codes Neurology Neurology Interp Codes: 23575-09 Musc test done w/n test comp (interp) and 71508-84 Nrv cndj tst 5-6 studies (interp)
[2023-10-23 15:37] LABS: Potassium 4.9 mmol/L (3.5-5.1)
== END | disposition home or self-care (01) ==
PROVIDERS: PCP Internal Medicine; Referring Provider Internal Medicine; Visit Provider Internal Medicine
DX: M54.30 Sciatica, unspecified side (principal); E87.5 Hyperkalemia; R20.0 Anesthesia of skin
CPT/HCPCS: 84132; 95886; 95909

== ENCOUNTER → 2024-02-11 | Outpatient (CLI) | payer OTHER, SELFPAY ==
--- NOTE | 2024-02-11 12:32 | MRI_ITS ---
STUDY: MRI RIGHT KNEE REASON FOR EXAM: Male, 58 years old. Swelling. TECHNIQUE: Standardized fat and water weighted pulse sequences were obtained in all 3 orthogonal planes. COMPARISON: X-ray January 24, 2024 FINDINGS: There is medial meniscus tear of the posterior horn, series 4 images 30 and 33. There is diffuse, less than 50% thickness articular cartilage loss of the medial femorotibial compartment. Normal medial femoral condyle and tibial plateau. There is ligamentous thickening of the MCL consistent with a remote MCL sprain. Normal distal semimembranosus, gracilis and semitendinosus tendons. Normal lateral meniscus. Normal hyaline cartilage of the lateral femorotibial compartment. Normal lateral femoral condyle and tibial plateau. Normal proximal tibiofibular articulation. Normal lateral collateral (fibular) ligament. Normal popliteus tendon. Normal biceps femoris tendon. Normal anterior cruciate ligament (ACL). Normal posterior cruciate ligament (PCL). There is arthrosis of the patellofemoral articulation. There is diffuse, greater than 50% thickness articular cartilage loss of the patellofemoral compartment. There is spurring and subchondral edema. Normal medial and lateral patellar retinaculum. Normal quadriceps tendon. Normal patellar tendon. Normal Hoffa''s fat pad. There is a moderate volume joint effusion. The soft tissues are unremarkable. The otherwise visualized osseous structures are unremarkable. MRI/Lower Ext Joint Only (Routine) IMPRESSION: Medial meniscus tear. Medial collateral ligament sprain. Degenerative change. Joint effusion. Electronically Signed: Benny Ivan MD at 23:32 EDT ,
== END | disposition home or self-care (01) ==
LOC: MRI 12:26
PROVIDERS: PCP Internal Medicine; Referring Provider Internal Medicine; Visit Provider Internal Medicine
DX: R93.6 Abnormal findings on diagnostic imaging of limbs (principal)
CPT/HCPCS: 73721

== ENCOUNTER 2024-05-05 09:30 | Outpatient (RCR) | payer OTHER, SELFPAY ==
--- NOTE | 2024-04-06 08:58 | HP.PTEVAL_ITS ---
Patient's Visit Information Visit Information Visit Information: NATALIA MARTINEZ is a 58 year old M referred to Physical Therapy by Dr. Sonali Lechuga MD with a diagnosis of R mensicus tear and MCL sprain. Date of Evaluation: 04/06/24 Physical Therapist: Michael Mccray, DPT, OCS, CSCS Visit Plan Frequency: 2x /Week Duration: 4-6 Weeks Plan: 2x/week for 4 weeks for 1. rollout and stretch R ITB, quad. 2. strengthenin R hip and knee and progress function to step ups, progress HEP ice as needed Subjective Subjective: Horizontal MCl tear in R knee sustained from yard work on uneven surface and pulling a heavy wagon. No pain at time but achy knees the next day back in December. A day later could hardly walk and swollen getting out of bed. Pain anterior and lateral. Also has IT band burning if stands too long on lateral knee. burning lingers upon sitting but then goes away. Currently no pain walking back to PT. Time has helped and cortisone shot in knee which helped take away much of the pain away 50%. Just waiting otherwise over the last couple months. Waiting on PT. Pain in the last week 0 at rest, and mild to moderate pain with knees and carefu on steps. Walking long time as in grocery shopping acan cause achiness in IT and knee. Sleep is not a problem anymore. 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 Uses hands to stand up. Exercise: Waltz, Tolerates but gets burny achy after 10-15 minutes. Causes limp sometimes in one hour class. Hobbies: dancing. Activities at home: I but steps are achy and carrying heavy loads can be rough. Pain L knee: Pain Intensity (Out of 10): 0 Pain Intensity Range: 0 and 7 Objective Objective: Walks i without gait deviations today, steps are reciprocal but painful R knee with WB, Trasnfers chair and bed I, shair tends to use UE. AROM LB WFL and without pain today. hip and knee aROM WNL and symmetrical, 0-135 at knees without pain today. ankles WFL. hip strength 3+/5 rotations and abd and ext B, flexion 4, knee flex/ext 4+ without pain. ankle 4+/5 B. ITB mild tight, HS mild tight at -30 90/900 test and quad mod tight all B. Tender to palkpation ITB R, not L and into lateral knee. + r disco test, - bounce home, - patellar grind, - varus and valgus, - ant drawer, - post sag. Balance/Special Test Scores Lower Extremity Functional Score: 54 Goals Goal 1:: Dance class without increased pain Goal Time Frame: 4-6 Weeks Goal 2:: stand and walk for 30 minutes without noticing knee problems Goal Time Frame: 4-6 Weeks Goal 3:: stairs recirpocal without pain Goal Time Frame: 4-6 Weeks Goal 4:: Pt feel knee is 95% bvack to normal and 1/10 pain at worst Goal Time Frame: 4-6 Weeks Goal 5:: LEFS score 60 Goal Time Frame: 4-6 Weeks Rehabilitation Potential Physical Therapy Diagnosis: R knee pain limiting funciton, tightness and weakness in hip. Rehabilitation Potential: Good Anticipated Interventions Patient/Client Instruction: Educate patient on: Condition and Plan of Care For the Purpose of:: To decrease pain, To increase ROM, To improve nutrient delivery to tissue, To improve muscle performance and motor function and To increase tolerance to activity/condition/position Therapeutic Exercise to Include: Strength training, Postural training, Flexibilty training, Passive ROM and Active ROM For the Purpose of:: To decrease pain, To increase ROM, To improve nutrient delivery to tissue, To improve muscle performance and motor function and To improve gait and locomotor functions Manual Therapy Techniques to Include: Petrissage, Mobilization, Passive ROM and Soft tissue mobilization For the Purpose of:: To decrease pain, To improve nutrient delivery to tissue, To improve muscle performance and motor function and To increase tolerance to activity/condition/position Cryotherapy (ice pack, ice massage): Yes For the Purpose of:: To decrease pain and To decrease swelling/inflammation Text: Thank you for the opportunity to evaluate your patient. For Medicare and Medicare HMO plans, please review the plan of care and approve it. It will need to be FAXED BACK to us at [phone] for Medicare purposes. For Medicare only, by signing this I certify the plan of care. Please let me know if there are questions or concerns regarding this plan of care. Physician Signature: Dat e:
--- NOTE | 2024-05-05 10:16 | HP.PTDCSUM ---
Discharge Summary D/C summary: It has been my pleasure to treat NATALIA MARTINEZ referred by Dr. Sonali Lechuga MD, with the diagnosis of R mensicus tear and MCL sprain for a total of 8 visit(s). Discharge Date: 05/05/24 Please see the following information for a summary of their discharge status. Subjective Subjective: A little pain behind knee with squatting. Down stairs in am is a little worse but better later in day and 1/10 in am. Activities are close to normal, avoids ladder or step ladder. Sleeping [place] HNP keeps him up but not knee. Knee is no problem in bed. To Dr. Lechuga at some point. HEP at home daily when not in PT. Pain L knee: Pain Intensity (Out of 10): 0 R knee: Pain Intensity (Out of 10): 0 R IT band: Pain Intensity (Out of 10): 0 Overall Improvement % Improvement: 95 Objective Objective/Function: 0-135 AROM with out pain in R knee. SLR without lag. steps reciprocally without rail. walk normal. Goals Goal 1:: Dance class without increased pain Goal Progress: Goal Met Goal 2:: stand and walk for 30 minutes without noticing knee problems Goal Progress: Goal Met Goal 3:: stairs recirpocal without pain Goal Progress: Goal Met Goal 4:: Pt feel knee is 95% bvack to normal and 1/10 pain at worst Goal Progress: Goal Met Goal 5:: LEFS score 60 Goal Progress: Goal Met Plan Plan: d/c D/C Information d/c sentence: If there are questions or concerns regarding this patient's physical therapy, please feel free to call me at [phone]. Thank you for the referral of this patient. Sincerely, Michael Mccray, DPT, OCS, CSCS Balance/Gait/Functional tests Balance/Special Test Scores Lower Extremity Functional Score: 69 Improvement % Improvement: 95
== END 2024-05-05 19:00 | disposition home or self-care (01) ==
LOC: PT 09:30
PROVIDERS: PCP Internal Medicine; Referring Provider Internal Medicine; Visit Provider Internal Medicine
DX: S83.242D Other tear of medial meniscus, current injury, left knee, subsequent encounter (principal); M76.32 Iliotibial band syndrome, left leg
CPT/HCPCS: 97110; 97140; 97161